=== PATIENT | female | born 1970 | race Caucasian/White ===

== ENCOUNTER → 2016-09-01 | Outpatient (REF) | payer OTHER ==
[~2016-09-01] MED LIST: /HYDR10T PO; /LORA10TA PO; /MOM400 PO; /ONDA4TA PO; /TAMS4CA PO; ACET50TA PO; ALLERGY EYE DROPS OU; ALLO100T OR; ARTHROTEC PO; AZEL0.1S3; Advil PM PO; BACL10TA2 OR; BENA25CA PO; CALCTAB54 PO; CETI10TA PO; CLAR5CHW PO; CLON0.1T PO; DETR1TAB4 PO; DIPH25CA PO; DITR5TAB PO; DOCU10CA PO; DOCU10ELUD PO; FERR150C PO; FLOM5CAP PO; FLOVENT INH; HYDR25TA6 OR; HYDR50TA8 PO; IRON27TA PO; KETO-28 PO; KETO10TAB PO; LASI20TA PO; LEVO750T PO; LISI10TA4 OR; MORP-39 PO; MULTIVIT PO; NEUR100C PO; NEUR300C PO; NITR100C37 PO; NUCY200T PO; NUCY75TA PO; OPTIVAR OU; OXYC-208 PO; OXYCO5TA PO; PERC5TAB8 OR; PERC5TAB8 PO; PERC7.5T12 PO; POTASSIUM CITRATE1 PO; PROG200C PO; PROM25SU5 PO; PROM25TA PO; PROM25TA3 PO; SLOW45TA PO; SUDA30TA PO; TRAM50TA2 OR; TRAM50TA2 PO; TRUBCAP PO; ULTR50TA PO; VALI5TAB PO; VENL37.5 OR; VIT D 4000 PO; VITA1CHW8 PO; VITA1DRO SL; VITA500C3 PO; VITA500L3 PO; ZOFR20TA PO; ZOFR4SOL PO; ZYLO300T4 PO; ZYRT10TA2 PO; [UNRECOGNIZED DRUG - CODE] AU; [UNRECOGNIZED DRUG - CODE] OU; [UNRECOGNIZED DRUG - CODE] PO; [UNRECOGNIZED DRUG - OTHER] AD; [UNRECOGNIZED DRUG - OTHER] PO; morphine IR PO
[2016-09-01 17:55] LABS: CALCIUM OXALATE CRYSTALS MODERATE
== END | disposition home or self-care (01) ==
LOC: M LAB REF 16:18
PROVIDERS: ATTEND Physician Assistant Medical
DX: N39.0 Urinary tract infection, site not specified (principal)

== ENCOUNTER → 2016-09-22 | Outpatient (REF) | payer OTHER ==
[~2016-09-22] MED LIST changes: +OXYC-517 PO; -OXYCO5TA PO
[2016-09-22 14:08] LABS: CALCIUM OXALATE CRYSTALS LARGE
== END | disposition home or self-care (01) ==
LOC: M LAB REF 13:29
PROVIDERS: ATTEND Physician Assistant
DX: R30.0 Dysuria (principal)

== ENCOUNTER → 2016-10-19 | Outpatient (REF) | payer OTHER ==
[2016-10-19 13:51] LABS: MICROSCOPIC INDICATED? MAN YES (NO)
[2016-10-19 13:59] LABS: BACTERIA, URINE LARGE AMOUNT; CALCIUM OXALATE CRYSTALS,URINE SMALL AMOUNT /hpf; RBC, URINE NONE SEEN /hpf (0-3); SQUAMOUS EPITHELIAL CELL URINE SMALL AMOUNT /hpf (SMALL AMT); WBC, URINE 15-20 /hpf (0-3)
[2016-10-19 14:00] LABS: HYALINE CAST, URINE NONE SEEN /lpf (0-1); MICROSCOPIC EXAM PERFORMED
== END ==
LOC: M LAB REF 13:27
PROVIDERS: ATTEND Physician Assistant Medical
DX: N39.0 Urinary tract infection, site not specified (principal)

== ENCOUNTER → 2016-10-19 | Outpatient (CLI) | payer OTHER ==
--- NOTE | 2016-10-20 00:26 | ECWPNPC ---
PATIENT NAME: KELLY REYES : 1970 GENDER: FEMALE VISIT DATE: 10/19/2016 DISCHARGE DATE: 10/19/16 1040 VISIT LOCKED DATE TIME: PHYSICIAN: SONALI AGUIAR RESOURCE: SONALI AGUIAR REASON FOR APPOINTMENT 1. FOLLOW UP HISTORY OF PRESENT ILLNESS HISTORY OF PRESENT ILLNESS: PAIN THE PATIENT DESCRIBES THE PAIN... FALL RISK SCREENING: SCREENING :NO FALLS IN THE PAST YEAR TODAY'S VISIT: NOTES: WAS PUT ON PREVENTATIVE FOR UTI BY DR MARSHALL (SELVIN) TO SEE NEW UROLOGIST IN NEAR FUTURE. TO SEE URGENT CARE TODAY FOR RECURRENT ACTIVE UTI INFECTION. HAS BEEN EXPERIENCING FEVERS. WILL BE MAKING FOLLOW UP APPOINTMENT AT [facility].. CURRENT MEDICATIONS TAKING VITAMIN D (ERGOCALCIFEROL) 17576 UNIT CAPSULE 1 CAPSULE ORALLY TWICE A WEEK TAKING MULTIPLE VITAMIN 2 TABLETS TABLET DIRECTED ORALLY TAKING OPTIVAR 0.05 % SOLUTION 1 DROP INTO BOTH EYES OPHTHALMIC TWICE A DAY TAKING BENADRYL 25 MG CAPSULE 1 CAPSULE NEEDED ORALLY PRN TAKING COLACE 100 MG CAPSULE 1 CAPSULE NEEDED ORALLY BID TAKING HIGH POTENCY IRON 134 MG TABLET 1 TABLET ORALLY THREE TIMES A DAY TAKING VITAMIN C 100 MG TABLET 1 TABLET ORALLY THREE TIMES A DAY TAKING VITAMIN D 400 UNIT CAPSULE ORALLY ONCE A DAY TAKING PROBIOTIC CAPSULE ORALLY DAILY TAKING ZYRTEC ALLERGY 10 MG TABLET 1 TABLET NEEDED ORALLY ONCE A DAY TAKING RIZATRIPTAN BENZOATE 10 MG TABLET 1 TABLET NEEDED ONE TIME ORALLY AT ONSET OF MIGRAINE AND MAY REPEAT X 1 IN 2 HOURS IF NEEDED TAKING GABAPENTIN 300 MG CAPSULE 1 CAP ORALLY TWICE A DAY TAKING OXYBUTYNIN CHLORIDE ER 10 MG TABLET EXTENDED RELEASE 24 HOUR 1 TABLET ORALLY ONCE A DAY TAKING CEPHALEXIN 500 MG CAPSULE 1 CAPSULE ORALLY TWICE A DAY TAKING DITROPAN XL 5 MG TABLET EXTENDED RELEASE 24 HOUR 1 TABLET ORALLY Q 12 HRS PRN PRN SPASMS TAKING TRAMADOL HCL 50 MG TABLET 1 TABLET NEEDED ORALLY 1-2 Q 6 HRS PRN PAIN CHRONIC PAIN MDD=6 TAKING VENLAFAXINE HCL ER 37.5 MG CAPSULE EXTENDED RELEASE 24 HOUR 1 CAPSULE WITH FOOD ORALLY 2 IN AM, 1 AT HS TAKING PERCOCET 10-325 MG TABLET 1 TABLET ORALLY EVERY4 HRS PRN PAIN MDD=6 TAKING URIBEL 118 MG CAPSULE 1 CAPSULE ORALLY FOUR TIMES A DAY TAKING FENUGREEK 610 MG CAPSULE ORALLY TID NOT-TAKING CYCLOBENZAPRINE HCL 10 MG TABLET 1/2 - TABLET ORALLY THREE TIMES A DAY MEDICATION LIST REVIEWED AND RECONCILED WITH THE PATIENT PAST MEDICAL HISTORY KIDNEY STONES HYPERTENSION SEASONAL DEPRESSION ALLERGIES BACTRIM: RASH: ALLERGY VICODIN: DYSPNEA: ALLERGY DILAUDID: NAUSEA/VOMITING: SIDE EFFECTS LEVAQUIN: NAUSEA/VOMITING: SIDE EFFECTS IV DYE: HIVES: ALLERGY SULFA (FOR ALLERGY USE ONLY): CONTRAINDICATED (BACTRIM) ALLERGY: ALLERGY GREEN DYE IN GEL CAPS: HIVES: ALLERGY EXCEDRIN MIGRAINE: HIVES: ALLERGY SOCIAL HISTORY GENERAL: TOBACCO USE ARE YOU A:NONSMOKER LEARNING BARRIERS / SPECIAL NEEDS ORIENTED TO PLAN OF CARE: PATIENT, PAIN MANAGEMENT PATIENT, ORIENTED TO PLAN OF CARE: PATIENT, PAIN MANAGEMENT PATIENT. NEW PATIENT PAIN DIARY TODAY'S VISITNOTES FROM 0-10, WHAT LEVEL IS YOUR PAIN TODAY?0 PAIN CLINIC PFS, CLERGY, PUBLIC HEALTH REFERRALS PFS REFERRAL NEEDED?NO CLERGY REFERRAL NEEDED?NO PUBLIC HEALTH REFERRAL NEEDED?NO WAS THE PROVIDER NOTIFIED OF ANY PERTINENT INFO?NO PFS REFERRAL NEEDED?NO CLERGY REFERRAL NEEDED?NO PUBLIC HEALTH REFERRAL NEEDED?NO WAS THE PROVIDER NOTIFIED OF ANY PERTINENT INFO?NO REVIEW OF SYSTEMS CONSTITUTIONAL: ANY CHANGE IN YOUR MEDICAL CONDITION? YES, CURRENTLY STATES SHE HAS A SORE THROAT / UTI SINCE MARCH ONE AFTER THE OTHER . MELLO STATES IS DUE TO REFULUS . CHILLS NO . FEVER NO . INFECTION: DO YOU HAVE NEW INFECTIONS? NO . DO YOU HAVE HISTORY OF MRSA? NO . MUSCULOSKELETAL: ANY NEW PATTERNS OF PAIN OR NUMBNESS? NO . GASTROENTEROLOGY: ANY NEW CHANGE IN BOWEL CONTROL? NO . GENITOURINARY: ANY NEW CHANGE IN BLADDER CONTROL? YES BURNING PULLING AND SMELL . IS THERE A CHANCE YOU COULD BE ? NO . HEMATOLOGY/LYMPH: DO YOU TAKE ANY BLOOD THINNERS? (FOR EXAMPLE- COUMADIN, PLAVIX, AGGRENOX, PLATEL, PRADAXA, OR XARELTO) NO . WHEN WAS YOUR LAST DOSE? DATE: TIME: . NEUROLOGY: HAVE YOU FALLEN IN THE PAST 6 MONTHS? NO . ANY NEW EXTREMITY NUMBNESS OR WEAKNESS? NO . CARDIOLOGY: DO YOU HAVE A PACEMAKER OR DEFIBRILLATOR? NO . RESPIRATORY: HAVE YOU BEEN SICK IN THE PAST WEEK? NO . FEVER NO . FLU LIKE SYMPTOMS? NO . COUGH NO . INTEGUMENTARY: DO YOU HAVE ANY RASHES OR OPEN SORES? NO . ALLERGIC/IMMUNO: ARE YOU ALLERGIC TO SHELLFISH OR IV DYE? YES . ANY NEW ALLERGIES? NO . PSYCHIATRIC: DO YOU HAVE THOUGHTS OF HURTING YOURSELF OR SOMEONE ELSE? NO . ARE YOU ABUSED, NEGLECTED, OR IN AN UNSAFE ENVIRONMENT? NO . ENDOCRINOLOGY: ARE YOU DIABETIC? NO . OTHER: DO YOU NEED ANY PRESCRIPTIONS? NO . IF YES, PLEASE LIST: ____ . ANY NEW PROBLEMS WITH YOUR MEDICATIONS? NO . WHEN DID YOU LAST EAT? ____ . WHEN DID YOU LAST DRINK? ____ . WHAT DID YOU LAST DRINK? ____ . NAME OF PERSON DRIVING YOU HOME? ____ . DO YOU HAVE ANY OTHER QUESTIONS OR CONCERNS NO . REVIEWED BY: PROVIDER: SONALI MONZON . VITAL SIGNS WT 215 LBS, HT 5'6", BMI 34.70 INDEX, BP 139/72 MM HG, HR 82 /MIN, RR 18 /MIN, TEMP 98 F,2 F, OXYGEN SAT % 97, SAFE IN ENV? (Y/N) YES, REVIEWED BY: KG. EXAMINATION GENERAL EXAMINATION: PSYCHALERT , ORIENTED X 3 , APPROPRIATE MOOD AND AFFECT . LUNGS:CLEAR TO AUSCULTATION BILATERALLY. HEART:HEART RATE REGULAR. ABDOMEN:SOFT, TENDER OVER RIGHT AND LEFT LOWER QUADRANTS. BOWEL SOUNDS QUIET. COSTOVERTEBRAL ANGLE TENDERNESS R>L. MUSCULOSKELETAL:R>L FLANK PAIN. . ASSESSMENTS GENERALIZED ABDOMINAL PAIN - R10.84 (PRIMARY) CHRONIC PRESCRIPTION OPIATE USE - Z79.891 TREATMENT GENERALIZED ABDOMINAL PAIN NOTES: CONTINUE CURRENT MEDS. CALL WHEN MEDS DUE. UTOX TODAY. UPDATE NARCOTIC AGREEMENT. CLINICAL NOTES: ISTOP REGISTRY REVIEWED AND DEMNOSTRATES COMPLLIANCE. BRINGS IN MEDICATIONS WHICH IS APPROPRIATE FOR WHAT WAS DISPENSED. RECENT URINE TOXICOLOGY REVIEWED. NO UNAUTHORIZED MEDICATIONS. NO ILLICIT SUBSTANCES AND PRESCRIBED MEDICATIONS WERE PRESENT. PROCEDURE CODES FA211 ESTABILISHED PATIENT [facility] CHARGE DISPOSITION & COMMUNICATION FOLLOW UP 2 MONTHS ELECTRONICALLY SIGNED BY RAND DIANE ON 10/19/2016 AT 11:46 AM EST DISCLAIMER : THIS IS A VISIT SUMMARY EXTRACTED FROM THE [employer] CHART. IT IS NOT A COPY OF THE [employer] PROGRESS NOTE. SIDD
== END ==
LOC: M PAIN 09:20
PROVIDERS: ATTEND Nurse Practitioner Family
DX: Z09 Encounter for follow-up examination after completed treatment for conditions other than malignant neoplasm (principal); G89.29 Other chronic pain; R10.84 Generalized abdominal pain; M79.2 Neuralgia and neuritis, unspecified; I10 Essential (primary) hypertension; F33.9 Major depressive disorder, recurrent, unspecified; Z88.1 Allergy status to other antibiotic agents; Z88.5 Allergy status to narcotic agent; Z88.8 Allergy status to other drugs, medicaments and biological substances; Z91.041 Radiographic dye allergy status; Z88.2 Allergy status to sulfonamides; Z79.891 Long term (current) use of opiate analgesic; Z79.899 Other long term (current) drug therapy

== ENCOUNTER → 2016-12-14 | Outpatient (REF) | payer OTHER | LOC: M LAB REF 17:02 | PROVIDERS: ATTEND Physician Assistant | DX: N39.0 Urinary tract infection, site not specified (principal) ==

== ENCOUNTER → 2017-01-03 | Outpatient (REF) | payer OTHER | LOC: M LAB REF 09:51 | PROVIDERS: ATTEND Physician Assistant | DX: R30.0 Dysuria (principal) ==

== ENCOUNTER → 2017-01-20 | Outpatient (CLI) | payer OTHER ==
--- NOTE | 2017-02-09 01:45 | ECWPNPC ---
PATIENT NAME: KELLY REYES : 1970 GENDER: FEMALE VISIT DATE: 01/20/2017 DISCHARGE DATE: 01/20/17 0951 VISIT LOCKED DATE TIME: PHYSICIAN: SONALI AGUIAR RESOURCE: SONALI AGUIAR REASON FOR APPOINTMENT 1. KIDNEY HISTORY OF PRESENT ILLNESS HISTORY OF PRESENT ILLNESS: PAIN THE PATIENT DESCRIBES THE PAIN... FALL RISK SCREENING: SCREENING :NO FALLS IN THE PAST YEAR TODAY'S VISIT: NOTES: HAD RECENT CYSTOSCOPY - NO VISUALIZED ISSUES. IS BEING REFERRED TO INFECTIOUS DISEASE.FOR FURTHER EVAL. HAS EPISODES OF SEVERE BLADDER SPASMS AND BLADDER AREA PAIN. PAIN MEDS ALLOW TO FUNCTION, TAKE THE EDGE OFF. HAS NOT YET BEEN RESEEN AT [facility]. RATES PAIN TODAY 5/[address]. . CURRENT MEDICATIONS TAKING VITAMIN D (ERGOCALCIFEROL) 80460 UNIT CAPSULE 1 CAPSULE ORALLY TWICE A WEEK TAKING MULTIPLE VITAMIN 2 TABLETS TABLET DIRECTED ORALLY TAKING OPTIVAR 0.05 % SOLUTION 1 DROP INTO BOTH EYES OPHTHALMIC TWICE A DAY TAKING BENADRYL 25 MG CAPSULE 1 CAPSULE NEEDED ORALLY PRN TAKING COLACE 100 MG CAPSULE 1 CAPSULE NEEDED ORALLY BID TAKING HIGH POTENCY IRON 134 MG TABLET 1 TABLET ORALLY THREE TIMES A DAY TAKING VITAMIN C 100 MG TABLET 1 TABLET ORALLY THREE TIMES A DAY TAKING VITAMIN D 400 UNIT CAPSULE ORALLY ONCE A DAY TAKING PROBIOTIC CAPSULE ORALLY DAILY TAKING ZYRTEC ALLERGY 10 MG TABLET 1 TABLET NEEDED ORALLY ONCE A DAY TAKING GABAPENTIN 300 MG CAPSULE 1 CAP ORALLY TWICE A DAY TAKING OXYBUTYNIN CHLORIDE ER 10 MG TABLET EXTENDED RELEASE 24 HOUR 1 TABLET ORALLY ONCE A DAY TAKING CEPHALEXIN 500 MG CAPSULE 1 CAPSULE ORALLY TWICE A DAY TAKING DITROPAN XL 5 MG TABLET EXTENDED RELEASE 24 HOUR 1 TABLET ORALLY Q 12 HRS PRN PRN SPASMS TAKING VENLAFAXINE HCL ER 37.5 MG CAPSULE EXTENDED RELEASE 24 HOUR 1 CAPSULE WITH FOOD ORALLY 2 IN AM, 1 AT HS TAKING FENUGREEK 610 MG CAPSULE ORALLY TID TAKING RIZATRIPTAN BENZOATE 10 MG TABLET 1 TABLET NEEDED ONE TIME ORALLY AT ONSET OF MIGRAINE AND MAY REPEAT X 1 IN 2 HOURS IF NEEDED TAKING TRAMADOL HCL 50 MG TABLET 1 TABLET NEEDED ORALLY 1-2 Q 6 HRS PRN PAIN CHRONIC PAIN MDD=6 TAKING PERCOCET 10-325 MG TABLET 1 TABLET ORALLY EVERY4 HRS PRN PAIN MDD=6 NOT-TAKING URIBEL 118 MG CAPSULE 1 CAPSULE ORALLY FOUR TIMES A DAY NOT-TAKING CYCLOBENZAPRINE HCL 10 MG TABLET 1/2 - TABLET ORALLY THREE TIMES A DAY MEDICATION LIST REVIEWED AND RECONCILED WITH THE PATIENT PAST MEDICAL HISTORY KIDNEY STONES HYPERTENSION SEASONAL DEPRESSION ALLERGIES BACTRIM: RASH: ALLERGY VICODIN: DYSPNEA: ALLERGY DILAUDID: NAUSEA/VOMITING: SIDE EFFECTS LEVAQUIN: NAUSEA/VOMITING: SIDE EFFECTS IV DYE: HIVES: ALLERGY SULFA (FOR ALLERGY USE ONLY): CONTRAINDICATED (BACTRIM) ALLERGY: ALLERGY GREEN DYE IN GEL CAPS: HIVES: ALLERGY EXCEDRIN MIGRAINE: HIVES: ALLERGY REVIEW OF SYSTEMS CONSTITUTIONAL: ANY CHANGE IN YOUR MEDICAL CONDITION? YES, STILL HAVE BLADDER INFECTION . CHILLS YES, ASSOCIATED WITH FEVER . FEVER YES . INFECTION: DO YOU HAVE NEW INFECTIONS? NO . DO YOU HAVE HISTORY OF MRSA? NO . MUSCULOSKELETAL: ANY NEW PATTERNS OF PAIN OR NUMBNESS? NO . GASTROENTEROLOGY: ANY NEW CHANGE IN BOWEL CONTROL? NO . GENITOURINARY: ANY NEW CHANGE IN BLADDER CONTROL? NO . IS THERE A CHANCE YOU COULD BE ? NO . HEMATOLOGY/LYMPH: DO YOU TAKE ANY BLOOD THINNERS? (FOR EXAMPLE- COUMADIN, PLAVIX, AGGRENOX, PLATEL, PRADAXA, OR XARELTO) NO . WHEN WAS YOUR LAST DOSE? DATE: TIME: . NEUROLOGY: HAVE YOU FALLEN IN THE PAST 6 MONTHS? NO . ANY NEW EXTREMITY NUMBNESS OR WEAKNESS? NO . CARDIOLOGY: DO YOU HAVE A PACEMAKER OR DEFIBRILLATOR? NO . RESPIRATORY: HAVE YOU BEEN SICK IN THE PAST WEEK? NO . FEVER NO . FLU LIKE SYMPTOMS? NO . COUGH NO . INTEGUMENTARY: DO YOU HAVE ANY RASHES OR OPEN SORES? NO . ALLERGIC/IMMUNO: ARE YOU ALLERGIC TO SHELLFISH OR IV DYE? YES, IVP DYE . ANY NEW ALLERGIES? NO . PSYCHIATRIC: DO YOU HAVE THOUGHTS OF HURTING YOURSELF OR SOMEONE ELSE? NO . ARE YOU ABUSED, NEGLECTED, OR IN AN UNSAFE ENVIRONMENT? NO . ENDOCRINOLOGY: ARE YOU DIABETIC? NO . OTHER: DO YOU NEED ANY PRESCRIPTIONS? YES . IF YES, PLEASE LIST: GABAPENTIN . ANY NEW PROBLEMS WITH YOUR MEDICATIONS? NO . WHEN DID YOU LAST EAT? ____ . WHEN DID YOU LAST DRINK? ____ . WHAT DID YOU LAST DRINK? ____ . NAME OF PERSON DRIVING YOU HOME? ____ . DO YOU HAVE ANY OTHER QUESTIONS OR CONCERNS NO . REVIEWED BY: PROVIDER: SONALI MONZON . VITAL SIGNS WT 215.0 LBS, HT 66", BMI 34.70 INDEX, BP 130/66 MM HG, HR 76 /MIN, RR 16 /MIN, TEMP 96.6 F, OXYGEN SAT % 96%, NA INITIALS TL 0917, REVIEWED BY: NL. EXAMINATION GENERAL EXAMINATION: PSYCHALERT , ORIENTED X 3 , APPROPRIATE MOOD AND AFFECT , FFRUSTRATED. LUNGS:CLEAR TO AUSCULTATION BILATERALLY. HEART:HEART RATE REGULAR. ABDOMEN:SOFT, TENDER OVER RIGHT AND LEFT LOWER QUADRANTS. BOWEL SOUNDS QUIET. COSTOVERTEBRAL ANGLE TENDERNESS R>L. MUSCULOSKELETAL:R>L FLANK PAIN. . ASSESSMENTS GENERALIZED ABDOMINAL PAIN - R10.84 (PRIMARY) TREATMENT GENERALIZED ABDOMINAL PAIN REFILL GABAPENTIN CAPSULE, 300 MG, 1 CAP, ORALLY, TWICE A DAY, 30 DAY(S), 60 CAPSULE, REFILLS 5 NOTES: CONTINE CURRENT MEDS. FOLLOW UP WITH INFECTIOUS DISEASES, [facility] AND UROLOGY. CLINICAL NOTES: ISTOP REGISTRY REVIEWED AND DEMNOSTRATES COMPLLIANCE. BRINGS IN MEDICATIONS WHICH IS APPROPRIATE FOR WHAT WAS DISPENSED. RECENT URINE TOXICOLOGY REVIEWED. NO UNAUTHORIZED MEDICATIONS. NO ILLICIT SUBSTANCES AND PRESCRIBED MEDICATIONS WERE PRESENT. PROCEDURE CODES FA211 ESTABILISHED PATIENT [facility] CHARGE DISPOSITION & COMMUNICATION FOLLOW UP 2-3 MONTHS (REASON: ABD PAIN) ELECTRONICALLY SIGNED BY RAND DIANE ON 02/08/2017 AT 05:48 PM EDT DISCLAIMER : THIS IS A VISIT SUMMARY EXTRACTED FROM THE [employer] CHART. IT IS NOT A COPY OF THE [employer] PROGRESS NOTE. JEANETTE
== END ==
LOC: M PAIN 09:00
PROVIDERS: ATTEND Nurse Practitioner Family
DX: G89.29 Other chronic pain (principal); R10.84 Generalized abdominal pain; Z87.442 Personal history of urinary calculi; I10 Essential (primary) hypertension; F32.9 Major depressive disorder, single episode, unspecified; Z79.891 Long term (current) use of opiate analgesic; Z79.899 Other long term (current) drug therapy; Z88.1 Allergy status to other antibiotic agents; Z88.5 Allergy status to narcotic agent; Z88.2 Allergy status to sulfonamides; Z88.6 Allergy status to analgesic agent; Z88.8 Allergy status to other drugs, medicaments and biological substances

== ENCOUNTER → 2017-01-28 | Outpatient (REF) | payer OTHER ==
[2017-01-28 16:55] LABS: BASO % 0.4 % (0.0-1.0); EOS # 0.1 K/mm3 (0.0-0.50); EOS % 1.6 % (0.0-3.0); LARGE UNSTAINED CELL # 0.1 K/mm3 (0.0-0.4); LARGE UNSTAINED CELL % 1.3 % (0.0-4.0); LYMPH # 1.5 K/mm3 (1.5-4.5); MEAN CORPUSCULAR HEMOGLOBIN 32.5 pg (27.0-33.0); MEAN CORPUSCULAR HGB CONC 34.1 g/dl (32.0-36.5); MEAN CORPUSCULAR VOLUME 95.4 fl (80.0-96.0); MONO # 0.5 K/mm3 (0.0-0.8); MONO % 7.4 % (0.0-5.0); NEUTROPHILS % 69.3 % (36.0-66.0); PLATELET COUNT, AUTOMATED 225 k/mm3 (150-450); RED CELL DISTRIBUTION WIDTH 12.9 % (11.5-14.5); WHITE BLOOD COUNT 7.3 K/mm3 (4.0-10.0)
[2017-01-28 17:24] LABS: ALBUMIN 3.7 GM/DL (3.2-5.2); ALBUMIN/GLOBULIN RATIO 1.23 (1.00-1.93); ALKALINE PHOSPHATASE 62 U/L (45-117); ALT/SGPT 24 U/L (12-78); ANION GAP 6 MEQ/L (8-16); AST/SGOT 15 U/L (15-37); BILIRUBIN,TOTAL 0.3 MG/DL (0.2-1.0); BLOOD UREA NITROGEN 16 MG/DL (7-18); CALCIUM LEVEL 8.7 MG/DL (8.5-10.1); CARBON DIOXIDE LEVEL 28 MEQ/L (21-32); CHLORIDE LEVEL 105 MEQ/L (98-107); CREATININE FOR GFR 0.78 MG/DL (0.55-1.02); GLOMERULAR FILTRATION RATE > 60.0 (>58); GLUCOSE, FASTING 102 MG/DL (70-105); POTASSIUM SERUM 4.2 MEQ/L (3.5-5.1); SODIUM LEVEL 139 MEQ/L (136-145); TOTAL PROTEIN 6.7 GM/DL (6.4-8.2)
== END ==
LOC: M LABDRAW1 15:37
PROVIDERS: ATTEND Internal Medicine Infectious Disease
DX: N39.0 Urinary tract infection, site not specified (principal)

== ENCOUNTER → 2017-02-04 | Outpatient (CLI) | payer OTHER ==
[~2017-02-04] MED LIST changes: +ISOVUE-370 76% 100ML VIAL (Q9967) As Ordered ONE; -NITR100C37 PO; +NITR100C39 PO
--- NOTE | 2017-02-05 05:19 | REP ---
Clinical: Recurrent urinary tract infections. Technique: Axial precontrast, contrast enhanced, and delayed images of the abdomen and pelvis using 100 ml Isovue 370 intravenous contrast material with coronal and sagittal re-formations. Comparison: 11/16/2006. Findings: There is evidence for autologous bilateral renal transplant with the kidneys are identified in the mid pelvis and renal vasculature anastomosed to the iliac vessels. The bilateral ureters have been transplanted to the anterior-superior margin of the bladder. The kidneys demonstrate satisfactory symmetric enhancement small areas of cortical scarring identified bilaterally which appear chronic. Delayed images demonstrate relatively normal appearance to the collecting system without hydroureteronephrosis. There is no evidence for nephrolithiasis, cystic or mass lesion. Liver, spleen, pancreas, and bilateral adrenal glands are normal. The patient is status post gastric bypass surgery, cholecystectomy, small bowel resection/anastomoses. There is no evidence for bowel obstruction or acute inflammatory process. Midline ventral pelvic hernia contains nonobstructed loop of colon. Pelvis demonstrates age appropriate uterus / adnexa. No pelvic fluid or ascites. No adenopathy. No free air. Abdominal aorta without aneurysm. Surrounding musculoskeletal structures are intact. Lung bases are clear. Impression: 1. Evidence for bilateral renal transplants as described above without acute urinary tract pathology and no evidence for hydroureteronephrosis. 2. Further chronic and postsurgical changes as noted above. 3. Midline ventral pelvic hernia contains nonobstructed loop of colon. 4. No further acute intra-abdominal or pelvic pathology appreciated. Signed by Charli Christensen MD 02/05/2017 05:11 A
== END ==
LOC: M RAD 15:46
PROVIDERS: ATTEND Internal Medicine Infectious Disease
DX: N39.0 Urinary tract infection, site not specified (principal); K43.9 Ventral hernia without obstruction or gangrene; Z94.0 Kidney transplant status
CPT/HCPCS: 74178; Q9967

== ENCOUNTER → 2017-04-15 | Outpatient (CLI) | payer OTHER ==
[~2017-04-15] MED LIST changes: -ISOVUE-370 76% 100ML VIAL (Q9967) As Ordered ONE
--- NOTE | 2017-04-20 23:54 | ECWPNPC ---
PATIENT NAME: KELLY REYES : 1970 GENDER: FEMALE VISIT DATE: 04/15/2017 DISCHARGE DATE: 04/15/17 1138 VISIT LOCKED DATE TIME: PHYSICIAN: SONALI AGUIAR RESOURCE: SONALI AGUIAR REASON FOR APPOINTMENT 1. KIDNEY HISTORY OF PRESENT ILLNESS HISTORY OF PRESENT ILLNESS: PAIN THE PATIENT DESCRIBES THE PAIN... FALL RISK SCREENING: SCREENING :NO FALLS IN THE PAST YEAR TODAY'S VISIT: NOTES: RATES PAIN LEVEL TODAY 5/10 WITH MEDICATION PAIN IS CENTERED IN MID ABDOMEN AND FLANK AREA BILATERALLY AND COMES IN WAVES AND SPASMS. PAIN IS WORSE WITH BLADDER INFECTION AND WHEN A KIDNEY STONE OR BLADDER SLUDGE IS MOVING. REPORTS INTERMITTNT VISIBLE BLOOD IN THE URINE. REPORTS HER MEDS ARE HELPFUL AT KEEPING THE PAIN CONTROLLED AND ALLOW HER TO FUNCTION. . CURRENT MEDICATIONS TAKING VITAMIN D (ERGOCALCIFEROL) 65076 UNIT CAPSULE 1 CAPSULE ORALLY TWICE A WEEK TAKING MULTIPLE VITAMIN 2 TABLETS TABLET DIRECTED ORALLY TAKING OPTIVAR 0.05 % SOLUTION 1 DROP INTO BOTH EYES OPHTHALMIC TWICE A DAY TAKING BENADRYL 25 MG CAPSULE 1 CAPSULE NEEDED ORALLY PRN TAKING COLACE 100 MG CAPSULE 1 CAPSULE NEEDED ORALLY BID TAKING HIGH POTENCY IRON 134 MG TABLET 1 TABLET ORALLY THREE TIMES A DAY TAKING VITAMIN C 100 MG TABLET 1 TABLET ORALLY THREE TIMES A DAY TAKING VITAMIN D 400 UNIT CAPSULE ORALLY ONCE A DAY TAKING PROBIOTIC CAPSULE ORALLY DAILY TAKING ZYRTEC ALLERGY 10 MG TABLET 1 TABLET NEEDED ORALLY ONCE A DAY TAKING FOSFOMYCIN 3 G DISSOVED IN 4 OZ WATER 3 G DISSOLVED IN 4 OZ OF WATER ORALLY ONE DOSE WEEKLY TAKING GABAPENTIN 300 MG CAPSULE 1 CAP ORALLY TWICE A DAY TAKING RIZATRIPTAN BENZOATE 10 MG TABLET 1 TABLET NEEDED ONE TIME ORALLY AT ONSET OF MIGRAINE AND MAY REPEAT X 1 IN 2 HOURS IF NEEDED TAKING VENLAFAXINE HCL ER 37.5 MG CAPSULE EXTENDED RELEASE 24 HOUR 1 CAPSULE ORALLY 2 IN AM, 1 AT HS TAKING TRAMADOL HCL 50 MG TABLET 1 TABLET NEEDED ORALLY 1-2 Q 6 HRS PRN PAIN CHRONIC PAIN MDD=6 TAKING PERCOCET 10-325 MG TABLET 1 TABLET ORALLY EVERY4 HRS PRN PAIN MDD=6 TAKING KEFLEX 500 MG CAPSULE 1 CAPSULE ORALLY TID PRN NOT-TAKING OXYBUTYNIN CHLORIDE ER 10 MG TABLET EXTENDED RELEASE 24 HOUR 1 TABLET ORALLY ONCE A DAY NOT-TAKING CEPHALEXIN 500 MG CAPSULE 1 CAPSULE ORALLY TWICE A DAY NOT-TAKING FENUGREEK 610 MG CAPSULE ORALLY TID MEDICATION LIST REVIEWED AND RECONCILED WITH THE PATIENT PAST MEDICAL HISTORY KIDNEY STONES HYPERTENSION SEASONAL DEPRESSION ALLERGIES BACTRIM: RASH: ALLERGY VICODIN: DYSPNEA: ALLERGY DILAUDID: NAUSEA/VOMITING: SIDE EFFECTS LEVAQUIN: NAUSEA/VOMITING: SIDE EFFECTS IV DYE: HIVES: ALLERGY SULFA (FOR ALLERGY USE ONLY): CONTRAINDICATED (BACTRIM) ALLERGY: ALLERGY GREEN DYE IN GEL CAPS: HIVES: ALLERGY EXCEDRIN MIGRAINE: HIVES: ALLERGY SURGICAL HISTORY LITHOTRIPSY W/STENT R SIDE 12/1996 10/1998 LITHOTRIPSY W/STENT R SIDE 11/1998 GALL BLADDER REMOVED 12/1998 LITHOTRIPSY W/STENT R SIDE 09/2003 LITHOTRIPSY W/STENT R SIDE 03/2006 LITHOTRIPSY W/STENT LEFT SIDE 05/2006 LITHOTRIPSY W/STENT L SIDE 05/2009 GASTRIC BYPASS 03/2012 LEFT - KIDNEY AUTOTRANSPLANT 11/09/2012 CYSTOSCOPY, RETROGRADE PYELOGRAM & RIGHT URETERAL STENT PLACEMENT 12/23/2012 CYSTOSCOPY, RIGHT URETEROSCOPY, BASKET EXTRACTION OF STONES, RIGHT DOUBLE J STENT EXCHANGE 02/02/2013 HOSPITALIZATION/MAJOR DIAGNOSTIC PROCEDURE 1998 GALL BLADDER REMOVED 1998 SEPTIC INFECTION 2007 PYELONEPHRITIS, UROSEPSIS, OBSTRUCTIVE NEPHROLITHIASIS 12/22/2012 REVIEW OF SYSTEMS REVIEWED BY: PROVIDER: SONALI MONZON . CONSTITUTIONAL: ANY CHANGE IN YOUR MEDICAL CONDITION? NO . CHILLS NO . FEVER NO . INFECTION: DO YOU HAVE NEW INFECTIONS? NO . DO YOU HAVE HISTORY OF MRSA? NO . MUSCULOSKELETAL: ANY NEW PATTERNS OF PAIN OR NUMBNESS? NO . GASTROENTEROLOGY: ANY NEW CHANGE IN BOWEL CONTROL? NO . GENITOURINARY: ANY NEW CHANGE IN BLADDER CONTROL? NO . IS THERE A CHANCE YOU COULD BE ? NO . HEMATOLOGY/LYMPH: DO YOU TAKE ANY BLOOD THINNERS? (FOR EXAMPLE- COUMADIN, PLAVIX, AGGRENOX, PLATEL, PRADAXA, OR XARELTO) NO . WHEN WAS YOUR LAST DOSE? DATE: TIME: . NEUROLOGY: HAVE YOU FALLEN IN THE PAST 6 MONTHS? NO . ANY NEW EXTREMITY NUMBNESS OR WEAKNESS? NO . CARDIOLOGY: DO YOU HAVE A PACEMAKER OR DEFIBRILLATOR? NO . RESPIRATORY: HAVE YOU BEEN SICK IN THE PAST WEEK? NO . FEVER NO . FLU LIKE SYMPTOMS? NO . COUGH NO . INTEGUMENTARY: DO YOU HAVE ANY RASHES OR OPEN SORES? NO . ALLERGIC/IMMUNO: ARE YOU ALLERGIC TO SHELLFISH OR IV DYE? YES . ANY NEW ALLERGIES? NO . PSYCHIATRIC: DO YOU HAVE THOUGHTS OF HURTING YOURSELF OR SOMEONE ELSE? NO . ARE YOU ABUSED, NEGLECTED, OR IN AN UNSAFE ENVIRONMENT? NO . ENDOCRINOLOGY: ARE YOU DIABETIC? NO . OTHER: DO YOU NEED ANY PRESCRIPTIONS? NO . IF YES, PLEASE LIST: ____ . ANY NEW PROBLEMS WITH YOUR MEDICATIONS? NO . WHEN DID YOU LAST EAT? ____ . WHEN DID YOU LAST DRINK? ____ . WHAT DID YOU LAST DRINK? ____ . NAME OF PERSON DRIVING YOU HOME? ____ . DO YOU HAVE ANY OTHER QUESTIONS OR CONCERNS NO . PSYCHOLOGY: PATIENT COMPLAINING OF FRUSTRATION WITH STRESS DUE TO ISSUES WITH EMPLOYER. VERY MUCH WANTS TO GET BACK TO WORK . UROLOGY: HEMATURIA INTERMITTANT HEMATURIA BASED ON MOVEMENT OF KIDNEY STONES. TREATED ON 2 OCCASIONS SINCE LAST VISIT FOR BLADDER INFECTION ASSOCIATED WITH FEVER, CHILLS, INTENSE NAUSEA AND INCREASED PAIN . VITAL SIGNS WT 226 LBS, HT 66", BMI 36.47 INDEX, BP 127/67 MM HG, HR 94 /MIN, RR 18 /MIN, TEMP 98.1 F, OXYGEN SAT % 97%, NA INITIALS CM 1038, REVIEWED BY: EM. EXAMINATION GENERAL EXAMINATION: PSYCHALERT , ORIENTED X 3 , APPROPRIATE MOOD AND AFFECT , TALKATIVE. SPEACH CLEAR - NO SLURRING. FOCUSED, ABLE TO STAY ON TARGET WITHOUT ISSUE.. LUNGS:CLEAR TO AUSCULTATION BILATERALLY. HEART:HEART RATE REGULAR, NORMAL S1S2, NO MURMURS, CLICK OR RUBS. ABDOMEN:SOFT, TENDER OVER RIGHT AND LEFT LOWER QUADRANTS. BOWEL SOUNDS QUIET. COSTOVERTEBRAL ANGLE TENDERNESS POSITIVE R>L. MUSCULOSKELETAL:R>L FLANK PAIN. ABLE TO RISE EASILY TO STANDING POSITION. , MUSCLE STRENGTH TESTING 5/5 BILATERAL UPPER AND LOWER EXTREMITIES. GAIT NONANTALGIC. ASSESSMENTS GENERALIZED ABDOMINAL PAIN - R10.84 (PRIMARY) TREATMENT GENERALIZED ABDOMINAL PAIN NOTES: CONTINUE CURRENT MEDS. USE OXYCODONE NEEDED MAX 6 PER DAY. TRY TO TAKE LITTLE POSSIBLE. CALL WHEN SCRIPTS DUE, ISTOP REGISTRY REVIEWED AND DEMONSTRATES COMPLIANCE. BRINGS IN MEDICATIONS WHICH IS APPROPRIATE FOR WHAT WAS DISPENSED. RECENT URINE TOXICOLOGY REVIEWED. NO UNAUTHORIZED MEDICATIONS. NO ILLICIT SUBSTANCES AND PRESCRIBED MEDICATIONS WERE PRESENT. LENGTHY DISCUSSION HELD REGARDING THE USE OF PAIN MEDICATIONS. WE HAVE DISCUSSED THIS MANY TIMES OVER THE YEARS SINCE HER ORIGINAL VISIT FOR ABDOMINAL PAIN SECONDARY TO HER KIDNEY STONE ISSUE. KELLY HAS COME TO EVERY APPOINTMENT WITHOUT FAIL. SHE HAS DONE RANDOM URINE TESTING AND THIS HAS ALWAYS SHOWN ONLY THE PRESCRIBED MEDICATIONS AND NEVER ANY ILLICIT SUBSTANCES. SHE HAS NEVER DEMONSTRATED ANY LACK OF JUDGMENT OR EVIDENCE OF IMPAIRMENT. SHE REPORTS THAT SHE USES HER OPIATES AFTER HER WORK HOURS AND ON THOSE OCCASIONS WHEN SHE CAN NOT TOLERATE THE PAIN OR HAS AN ACUTE INFECTION SHE HAS HAD TO TAKE TIME FROM HER JOB. SHE HAS MULTIPLE PROVIDERS INVOLVED IN HER CARE AND AT TIMES ATTENDING THOSE APPOINTMENTS HAS BEEN CHALLENGING DUE TO HER WORK SCHEDULE. I HAVE NEVER SEEN ANY "RED FLAG BEHAVIORS". 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 SHE WILL CONTINUE HER APPOINTMENTS HERE AND WE WILL CLOSELY MONITOR HER. WE WILL CONTINUE TO WORK TO IMPROVE HER PAIN CONTROL AND USE HER MEDS INFREQUENTLY POSSIBLE. PROCEDURE CODES FA211 ESTABILISHED PATIENT [facility] CHARGE DISPOSITION & COMMUNICATION FOLLOW UP 7 WEEKS (REASON: ABD/FLANK) ELECTRONICALLY SIGNED BY RAND DIANE ON 04/20/2017 AT 07:32 PM EDT DISCLAIMER : THIS IS A VISIT SUMMARY EXTRACTED FROM THE [employer] CHART. IT IS NOT A COPY OF THE [employer] PROGRESS NOTE. JEANETTE
== END ==
LOC: M PAIN 10:30
PROVIDERS: ATTEND Nurse Practitioner Family
DX: G89.29 Other chronic pain (principal); R10.84 Generalized abdominal pain; I10 Essential (primary) hypertension; F33.9 Major depressive disorder, recurrent, unspecified; Z98.82 Breast implant status; Z79.891 Long term (current) use of opiate analgesic; Z87.442 Personal history of urinary calculi; Z79.899 Other long term (current) drug therapy; Z88.1 Allergy status to other antibiotic agents; Z88.2 Allergy status to sulfonamides; Z88.6 Allergy status to analgesic agent; Z88.8 Allergy status to other drugs, medicaments and biological substances; Z88.5 Allergy status to narcotic agent; Z91.041 Radiographic dye allergy status

== ENCOUNTER → 2017-06-30 | Outpatient (CLI) | payer OTHER ==
--- NOTE | 2017-07-21 00:15 | ECWPNPC ---
PATIENT NAME: KELLY GRAHAM : 1970 GENDER: FEMALE VISIT DATE: 06/30/2017 DISCHARGE DATE: 06/30/17 1151 VISIT LOCKED DATE TIME: PHYSICIAN: SONALI AGUIAR RESOURCE: SONALI AGUIAR REASON FOR APPOINTMENT 1. KIDNEY HISTORY OF PRESENT ILLNESS HISTORY OF PRESENT ILLNESS: PAIN THE PATIENT DESCRIBES THE PAIN... FALL RISK SCREENING: SCREENING :NO FALLS IN THE PAST YEAR TODAY'S VISIT: NOTES: RATES PAIN TODAY 5/10WITH MEDS . PAIN CENTERED ACROSS THE [place] AREA. HAS BEEN RECURRING UTI - DID SEE DR TAMAYO BUT IS HAVING ISSUES TO GET THIS UNDER CONTROL IS SCHED TO SEE [facility] 07/10/17. SHE BRINGS INFORMATION REGARDING HER WORKPLACE TESTING REQUIREMENT. INTERMINT HEME. PASSED VISIBLE KIDNEY STONE THIS AM. CURRENT MEDICATIONS TAKING CRANBERRY 500 MG CAPSULE ORALLY TAKING VITAMIN B-12 250 MCG TABLET 1 TABLET ORALLY ONCE A DAY TAKING VITAMIN D (ERGOCALCIFEROL) 54473 UNIT CAPSULE 1 CAPSULE ORALLY TWICE A WEEK TAKING MULTIPLE VITAMIN 2 TABLETS TABLET DIRECTED ORALLY TAKING OPTIVAR 0.05 % SOLUTION 1 DROP INTO BOTH EYES OPHTHALMIC TWICE A DAY TAKING BENADRYL 25 MG CAPSULE 1 CAPSULE NEEDED ORALLY PRN TAKING COLACE 100 MG CAPSULE 1 CAPSULE NEEDED ORALLY BID TAKING HIGH POTENCY IRON 134 MG TABLET 1 TABLET ORALLY THREE TIMES A DAY TAKING VITAMIN C 100 MG TABLET 1 TABLET ORALLY THREE TIMES A DAY TAKING VITAMIN D 400 UNIT CAPSULE ORALLY ONCE A DAY TAKING PROBIOTIC CAPSULE ORALLY DAILY TAKING ZYRTEC ALLERGY 10 MG TABLET 1 TABLET NEEDED ORALLY ONCE A DAY TAKING GABAPENTIN 300 MG CAPSULE 1 CAP ORALLY TWICE A DAY TAKING KEFLEX 500 MG CAPSULE 1 CAPSULE ORALLY TID PRN TAKING TRAMADOL HCL 50 MG TABLET 1 TABLET NEEDED ORALLY 1-2 Q 6 HRS PRN PAIN CHRONIC PAIN MDD=6 TAKING VENLAFAXINE HCL ER 37.5 MG CAPSULE EXTENDED RELEASE 24 HOUR 1 CAPSULE ORALLY 2 IN AM, 1 AT HS TAKING PERCOCET 10-325 MG TABLET 1 TABLET ORALLY EVERY4 HRS PRN PAIN MDD=6 TAKING RIZATRIPTAN BENZOATE 10 MG TABLET 1 TABLET NEEDED ONE TIME ORALLY AT ONSET OF MIGRAINE AND MAY REPEAT X 1 IN 2 HOURS IF NEEDED TAKING OXYBUTYNIN CHLORIDE ER 10 MG TABLET EXTENDED RELEASE 24 HOUR 1 TABLET ORALLY ONCE A DAY NOT-TAKING FOSFOMYCIN 3 G DISSOVED IN 4 OZ WATER 3 G DISSOLVED IN 4 OZ OF WATER ORALLY ONE DOSE WEEKLY NOT-TAKING CEPHALEXIN 500 MG CAPSULE 1 CAPSULE ORALLY TWICE A DAY NOT-TAKING FENUGREEK 610 MG CAPSULE ORALLY TID MEDICATION LIST REVIEWED AND RECONCILED WITH THE PATIENT PAST MEDICAL HISTORY KIDNEY STONES HYPERTENSION SEASONAL DEPRESSION ALLERGIES BACTRIM: RASH: ALLERGY VICODIN: DYSPNEA: ALLERGY DILAUDID: NAUSEA/VOMITING: SIDE EFFECTS LEVAQUIN: NAUSEA/VOMITING: SIDE EFFECTS IV DYE: HIVES: ALLERGY SULFA (FOR ALLERGY USE ONLY): CONTRAINDICATED (BACTRIM) ALLERGY: ALLERGY GREEN DYE IN GEL CAPS: HIVES: ALLERGY EXCEDRIN MIGRAINE: HIVES: ALLERGY SOCIAL HISTORY GENERAL: TOBACCO USE ARE YOU A:NONSMOKER ANGLICAN [id number] SYNAGOGUE LEARNING BARRIERS / SPECIAL NEEDS ORIENTED TO PLAN OF CARE: PATIENT, PAIN MANAGEMENT PATIENT, ORIENTED TO PLAN OF CARE: PATIENT, PAIN MANAGEMENT PATIENT. NEW PATIENT PAIN DIARY TODAY'S VISITNOTES FROM 0-10, WHAT LEVEL IS YOUR PAIN TODAY?0 PAIN CLINIC PFS, CLERGY, PUBLIC HEALTH REFERRALS PFS REFERRAL NEEDED?NO PFS REFERRAL NEEDED?NO CLERGY REFERRAL NEEDED?NO CLERGY REFERRAL NEEDED?NO PUBLIC HEALTH REFERRAL NEEDED?NO PUBLIC HEALTH REFERRAL NEEDED?NO WAS THE PROVIDER NOTIFIED OF ANY PERTINENT INFO?NO WAS THE PROVIDER NOTIFIED OF ANY PERTINENT INFO?NO ADVANCE DIRECTIVES HEALTH CARE PROXY?YES NAME OF HCP FATHER / WILL BE CHANGING THIS IN FUTURE CONTACT # FOR HCP [phone] REVIEW OF SYSTEMS REVIEWED BY: PROVIDER: . CONSTITUTIONAL: ANY CHANGE IN YOUR MEDICAL CONDITION? NO . CHILLS NO . FEVER NO . INFECTION: DO YOU HAVE NEW INFECTIONS? NO . DO YOU HAVE HISTORY OF MRSA? NO . MUSCULOSKELETAL: ANY NEW PATTERNS OF PAIN OR NUMBNESS? NO . GASTROENTEROLOGY: ANY NEW CHANGE IN BOWEL CONTROL? NO . GENITOURINARY: ANY NEW CHANGE IN BLADDER CONTROL? NO . IS THERE A CHANCE YOU COULD BE ? NO . HEMATOLOGY/LYMPH: DO YOU TAKE ANY BLOOD THINNERS? (FOR EXAMPLE- COUMADIN, PLAVIX, AGGRENOX, PLATEL, PRADAXA, OR XARELTO) NO . WHEN WAS YOUR LAST DOSE? DATE: TIME: . NEUROLOGY: HAVE YOU FALLEN IN THE PAST 6 MONTHS? NO . ANY NEW EXTREMITY NUMBNESS OR WEAKNESS? NO . CARDIOLOGY: DO YOU HAVE A PACEMAKER OR DEFIBRILLATOR? NO . RESPIRATORY: HAVE YOU BEEN SICK IN THE PAST WEEK? NO . FEVER NO . FLU LIKE SYMPTOMS? NO . COUGH NO . INTEGUMENTARY: DO YOU HAVE ANY RASHES OR OPEN SORES? NO . ALLERGIC/IMMUNO: ARE YOU ALLERGIC TO SHELLFISH OR IV DYE? YES, IVP DYE . ANY NEW ALLERGIES? NO . PSYCHIATRIC: DO YOU HAVE THOUGHTS OF HURTING YOURSELF OR SOMEONE ELSE? NO . ARE YOU ABUSED, NEGLECTED, OR IN AN UNSAFE ENVIRONMENT? NO . ENDOCRINOLOGY: ARE YOU DIABETIC? NO . OTHER: DO YOU NEED ANY PRESCRIPTIONS? NO . IF YES, PLEASE LIST: ____ . ANY NEW PROBLEMS WITH YOUR MEDICATIONS? NO . WHEN DID YOU LAST EAT? ____ . WHEN DID YOU LAST DRINK? ____ . WHAT DID YOU LAST DRINK? ____ . NAME OF PERSON DRIVING YOU HOME? ____ . DO YOU HAVE ANY OTHER QUESTIONS OR CONCERNS NO . VITAL SIGNS WT 225.0 LBS, HT 66", BMI 36.31 INDEX, BP 139/69 MM HG, HR 96 /MIN, RR 16 /MIN, TEMP 96.7 F, OXYGEN SAT % 96%, NA INITIALS TL 1035, REVIEWED BY: NL. EXAMINATION GENERAL EXAMINATION: ABDOMEN:TENDER TO PALPATION, BS ACTIVE, POS CVA TENDERNESS. ASSESSMENTS GENERALIZED ABDOMINAL PAIN - R10.84 (PRIMARY) TREATMENT GENERALIZED ABDOMINAL PAIN REFILL OXYBUTYNIN CHLORIDE ER TABLET EXTENDED RELEASE 24 HOUR, 10 MG, 1 TABLET, ORALLY, ONCE A DAY, 30 DAY(S), 30, REFILLS 3 NOTES: UTOX TODAY. PROCEDURE CODES FA211 ESTABILISHED PATIENT [facility] CHARGE DISPOSITION & COMMUNICATION FOLLOW UP 08/18 WEEK (REASON: ABD PAIN) ELECTRONICALLY SIGNED BY RAND DIANE ON 07/20/2017 AT 08:35 AM EST DISCLAIMER : THIS IS A VISIT SUMMARY EXTRACTED FROM THE [employer] CHART. IT IS NOT A COPY OF THE [employer] PROGRESS NOTE. JEANETTE
== END ==
LOC: M PAIN 09:45
PROVIDERS: ATTEND Nurse Practitioner Family
DX: R10.84 Generalized abdominal pain (principal); N39.0 Urinary tract infection, site not specified; N20.0 Calculus of kidney; R31.9 Hematuria, unspecified; Z79.2 Long term (current) use of antibiotics; Z79.891 Long term (current) use of opiate analgesic

== ENCOUNTER → 2017-08-20 | Outpatient (CLI) | payer OTHER | LOC: M PAIN 11:30 | DX: R10.84 Generalized abdominal pain (principal); M79.2 Neuralgia and neuritis, unspecified; I10 Essential (primary) hypertension; J30.89 Other allergic rhinitis; Z88.1 Allergy status to other antibiotic agents; Z88.2 Allergy status to sulfonamides; Z88.5 Allergy status to narcotic agent; Z88.8 Allergy status to other drugs, medicaments and biological substances; Z91.041 Radiographic dye allergy status; Z79.891 Long term (current) use of opiate analgesic; Z79.899 Other long term (current) drug therapy | CPT/HCPCS: G0463 ==

== ENCOUNTER → 2017-09-06 | Outpatient (CLI) | payer OTHER | LOC: M PAIN 11:45 | DX: R10.84 Generalized abdominal pain (principal); M79.2 Neuralgia and neuritis, unspecified; Z79.891 Long term (current) use of opiate analgesic; Z79.899 Other long term (current) drug therapy; Z88.1 Allergy status to other antibiotic agents; Z88.2 Allergy status to sulfonamides; Z88.5 Allergy status to narcotic agent; Z88.8 Allergy status to other drugs, medicaments and biological substances; Z91.041 Radiographic dye allergy status; Z91.048 Other nonmedicinal substance allergy status | CPT/HCPCS: G0463 ==

== ENCOUNTER → 2017-10-15 | Outpatient (CLI) | payer OTHER | LOC: M PAIN 15:00 | DX: R10.84 Generalized abdominal pain (principal); M79.2 Neuralgia and neuritis, unspecified; Z79.891 Long term (current) use of opiate analgesic; Z79.899 Other long term (current) drug therapy; Z98.84 Bariatric surgery status; Z94.0 Kidney transplant status; Z96.0 Presence of urogenital implants; Z88.0 Allergy status to penicillin; Z91.041 Radiographic dye allergy status; Z91.048 Other nonmedicinal substance allergy status | CPT/HCPCS: G0463 ==

== ENCOUNTER → 2017-10-25 | Outpatient (REF) | payer OTHER ==
[2017-10-25 11:55] LABS: APPEARANCE, URINE HAZY (CLEAR); BACTERIA, URINE AUTO NEGATIVE (NEGATIVE); BILIRUBIN, URINE AUTO NEGATIVE (NEGATIVE); BLOOD, URINE BLOOD NEGATIVE (NEGATIVE); COLOR, URINE YELLOW (YELLOW); GLUCOSE, URINE (UA) AUTO NEGATIVE (NEGATIVE); KETONE, URINE AUTO NEGATIVE (NEGATIVE); LEUKOCYTE ESTERASE, URINE AUTO NEGATIVE (NEGATIVE); MUCUS, URINE SMALL (NEGATIVE); NITRITE, URINE AUTO NEGATIVE (NEGATIVE); PROTEIN, URINE AUTO NEGATIVE (NEGATIVE); RBC, URINE AUTO 6 /HPF (0-3); SPECIFIC GRAVITY URINE AUTO 1.023 (1.002-1.035); SQUAMOUS EPITHELIAL CELL UR AU 5 /HPF (0-6); UROBILINOGEN, URINE AUTO 0.2 mg/dL (0.0-2.0); WBC, URINE AUTO 1 /HPF (0-3); YEAST LIKE CELL URINE AUTO SMALL
== END ==
LOC: M SFHCPLAZ 11:30
DX: N39.0 Urinary tract infection, site not specified (principal)

== ENCOUNTER 2017-11-02 12:28 | Emergency (ER) | payer OTHER ==
[2017-11-02 13:04] LABS: KETONE, URINE AUTO RFX NEGATIVE (NEGATIVE); LEUKOCYTE ESTERASE UR AUTO RFX 2+ (NEGATIVE); MUCUS, URINE RFX SMALL (NEGATIVE); NITRITE, URINE AUTO RFX NEGATIVE (NEGATIVE); RBC, URINE AUTO RFX 11 /HPF (0-3); SPECIFIC GRAVITY UR AUTO RFX 1.014 (1.002-1.035); SQUAM EPITHELIAL CELL UR AURFX 5 /HPF (0-6); WBC, URINE AUTO RFX 59 /HPF (0-3)
[2017-11-02 13:21] LABS: CONTROL LINE UCG INT CTR LINE PRESENT; URINE PREG TEST NEGATIVE (NEGATIVE)
[2017-11-02] MEDS: NS 1,000 ML IV (13:49)
[2017-11-02] MEDS: ONDANSETRON 4MG/2ML VIAL (J2405) IV (13:49)
[2017-11-02 13:58] LABS: BASO % 0.6 % (0.0-1.0); EOS # 0.1 10^3/uL (0.0-0.50); EOS % 2.1 % (0.0-3.0); IMMATURE GRANULOCYTE % 0.7 % (0-3.0); LYMPH # 1.6 10^3/uL (1.5-4.5); LYMPH % 23.7 % (24.0-44.0); MEAN CORPUSCULAR HGB CONC 33.3 g/dl (32.0-36.5); MEAN CORPUSCULAR VOLUME 96.1 fl (80.0-96.0); MONO # 0.7 10^3/uL (0.0-0.8); MONO % 10.6 % (0.0-5.0); NEUTROPHILS # 4.2 10^3/uL (1.8-7.7); NEUTROPHILS % 62.3 % (36.0-66.0); PLATELET COUNT, AUTOMATED 222 10^3/uL (150-450); RED BLOOD COUNT 4.06 10^6/uL (4.00-5.40); RED CELL DISTRIBUTION WIDTH 12.4 % (11.5-14.5); WHITE BLOOD COUNT 6.8 10^3/uL (4.0-10.0)
[2017-11-02] MEDS: traMADol 50 MG TAB PO (14:24)
[2017-11-02 14:25] LABS: ANION GAP 9 MEQ/L (8-16); BLOOD UREA NITROGEN 15 MG/DL (7-18); CALCIUM LEVEL 9.4 MG/DL (8.5-10.1); CARBON DIOXIDE LEVEL 26 MEQ/L (21-32); CHLORIDE LEVEL 104 MEQ/L (98-107); CREATININE FOR GFR 0.76 MG/DL (0.55-1.30); GLOMERULAR FILTRATION RATE > 60.0 (>58); GLUCOSE, FASTING 89 MG/DL (70-100); POTASSIUM SERUM 3.8 MEQ/L (3.5-5.1); SODIUM LEVEL 139 MEQ/L (136-145)
[2017-11-02 15:04] LABS: LACTIC ACID SEPSIS PROTOCOL 2.1 MMOL/L (0.4-2.0)
[2017-11-02] MEDS: PERCOCET 5MG/325MG TAB PO (15:52)
[2017-11-02] MEDS: CEFTRIAXONE SOD 1 GM in APPROPRIATE DILUENT 1 EA IV (15:52)
== END 2017-11-02 16:55 | disposition home or self-care (01) ==
LOC: M ED 12:28
DX: N30.21 Other chronic cystitis with hematuria (principal); I10 Essential (primary) hypertension; Z87.440 Personal history of urinary (tract) infections; Q61.5 Medullary cystic kidney; J30.2 Other seasonal allergic rhinitis; Z98.84 Bariatric surgery status; Z79.899 Other long term (current) drug therapy; Z91.041 Radiographic dye allergy status; Z88.2 Allergy status to sulfonamides; Z88.8 Allergy status to other drugs, medicaments and biological substances; Z88.5 Allergy status to narcotic agent
CPT/HCPCS: J2405

== ENCOUNTER → 2017-11-16 | Outpatient (REF) | payer OTHER ==
[2017-11-16 16:09] LABS: APPEARANCE, URINE HAZY (CLEAR); BACTERIA, URINE AUTO NEGATIVE (NEGATIVE); BILIRUBIN, URINE AUTO NEGATIVE (NEGATIVE); BLOOD, URINE BLOOD NEGATIVE (NEGATIVE); COLOR, URINE YELLOW (YELLOW); GLUCOSE, URINE (UA) AUTO NEGATIVE (NEGATIVE); KETONE, URINE AUTO TRACE mg/dL (NEGATIVE); LEUKOCYTE ESTERASE, URINE AUTO NEGATIVE (NEGATIVE); MUCUS, URINE SMALL (NEGATIVE); NITRITE, URINE AUTO NEGATIVE (NEGATIVE); PROTEIN, URINE AUTO NEGATIVE (NEGATIVE); RBC, URINE AUTO 8 /HPF (0-3); SPECIFIC GRAVITY URINE AUTO 1.021 (1.002-1.035); SQUAMOUS EPITHELIAL CELL UR AU 11 /HPF (0-6); UROBILINOGEN, URINE AUTO 0.2 mg/dL (0.0-2.0); WBC, URINE AUTO 1 /HPF (0-3)
== END ==
LOC: M SFHCPLAZ 15:41
DX: B96.1 Klebsiella pneumoniae [K. pneumoniae] as the cause of diseases classified elsewhere (principal)

== ENCOUNTER → 2018-01-05 | Outpatient (REF) | payer OTHER ==
[2018-01-05 15:19] LABS: APPEARANCE, URINE CLOUDY (CLEAR); BACTERIA, URINE AUTO 3+ (NEGATIVE); BILIRUBIN, URINE AUTO NEGATIVE (NEGATIVE); BLOOD, URINE BLOOD 1+ (NEGATIVE); COLOR, URINE YELLOW (YELLOW); GLUCOSE, URINE (UA) AUTO NEGATIVE (NEGATIVE); KETONE, URINE AUTO NEGATIVE (NEGATIVE); LEUKOCYTE ESTERASE, URINE AUTO 2+ (NEGATIVE); NITRITE, URINE AUTO NEGATIVE (NEGATIVE); PROTEIN, URINE AUTO NEGATIVE (NEGATIVE); RBC, URINE AUTO 5 /HPF (0-3); SPECIFIC GRAVITY URINE AUTO 1.014 (1.002-1.035); SQUAMOUS EPITHELIAL CELL UR AU 31 /HPF (0-6); UROBILINOGEN, URINE AUTO 0.2 mg/dL (0.0-2.0); WBC, URINE AUTO 37 /HPF (0-3)
== END ==
LOC: M LAB REF 14:32
DX: N39.0 Urinary tract infection, site not specified (principal)
CPT/HCPCS: 81001

== ENCOUNTER → 2018-01-07 | Outpatient (CLI) | payer OTHER ==
[2018-01-07 13:27] LABS: BASO # 0.1 10^3/uL (0.0-0.2); BASO % 0.7 % (0.0-1.0); EOS # 0.2 10^3/uL (0.0-0.50); EOS % 3.3 % (0.0-3.0); HEMATOCRIT 42.5 % (36.0-47.0); HEMOGLOBIN 14.5 g/dl (12.0-15.5); IMMATURE GRANULOCYTE % 1.1 % (0-3.0); LYMPH # 2.1 10^3/uL (1.5-4.5); LYMPH % 28.7 % (24.0-44.0); MEAN CORPUSCULAR HEMOGLOBIN 31.9 pg (27.0-33.0); MEAN CORPUSCULAR HGB CONC 34.1 g/dl (32.0-36.5); MEAN CORPUSCULAR VOLUME 93.6 fl (80.0-96.0); MONO # 0.6 10^3/uL (0.0-0.8); MONO % 8.4 % (0.0-5.0); NEUTROPHILS # 4.2 10^3/uL (1.8-7.7); NEUTROPHILS % 57.8 % (36.0-66.0); PLATELET COUNT, AUTOMATED 231 10^3/uL (150-450); RED BLOOD COUNT 4.54 10^6/uL (4.00-5.40); RED CELL DISTRIBUTION WIDTH 11.9 % (11.5-14.5); WHITE BLOOD COUNT 7.3 10^3/uL (4.0-10.0)
[2018-01-07 13:45] LABS: ALBUMIN 4.2 GM/DL (3.2-5.2); ALBUMIN/GLOBULIN RATIO 1.17 (1.00-1.93); ALKALINE PHOSPHATASE 63 U/L (45-117); ALT/SGPT 30 U/L (12-78); ANION GAP 8 MEQ/L (8-16); AST/SGOT 18 U/L (7-37); BILIRUBIN,TOTAL 0.4 MG/DL (0.2-1.0); BLOOD UREA NITROGEN 18 MG/DL (7-18); C REACTIVE PROTEIN QUANTITATIV 0.69 MG/DL (0.00-0.30); CALCIUM LEVEL 9.2 MG/DL (8.5-10.1); CARBON DIOXIDE LEVEL 24 MEQ/L (21-32); CHLORIDE LEVEL 108 MEQ/L (98-107); CREATININE FOR GFR 1.08 MG/DL (0.55-1.30); GLOMERULAR FILTRATION RATE 58.1 (>58); GLUCOSE, FASTING 138 MG/DL (70-100); POTASSIUM SERUM 4.1 MEQ/L (3.5-5.1); SODIUM LEVEL 140 MEQ/L (136-145); TOTAL PROTEIN 7.8 GM/DL (6.4-8.2)
== END ==
LOC: M LAB 12:54
DX: N30.01 Acute cystitis with hematuria (principal)
CPT/HCPCS: 80053

== ENCOUNTER 2018-01-16 16:46 | Inpatient (IN) | payer OTHER ==
[2018-01-16 17:02] LABS: BEDSIDE GLUCOSE 317 MG/DL (70-105)
[2018-01-16] MEDS ORDERED: ACETYLCYSTEINE 6000 MG/30 ML *IV* VIAL (J0132) As Ordered (17:29)
[2018-01-16] MEDS: NS 1,000 ML IV (17:37)
[2018-01-16] MEDS: NALOXONE INJ 2 MG/2 ML SYRINGE (J2310) IV (17:37)
[2018-01-16 17:39] LABS: BASO # 0.1 10^3/uL (0.0-0.2); BASO % 0.3 % (0.0-1.0); EOS # 0.2 10^3/uL (0.0-0.50); HEMATOCRIT 37.8 % (36.0-47.0); HEMOGLOBIN 12.7 g/dl (12.0-15.5); IMMATURE GRANULOCYTE % 1.4 % (0-3.0); LYMPH # 2.2 10^3/uL (1.5-4.5); LYMPH % 14.3 % (24.0-44.0); MEAN CORPUSCULAR HEMOGLOBIN 32.2 pg (27.0-33.0); MEAN CORPUSCULAR HGB CONC 33.6 g/dl (32.0-36.5); MEAN CORPUSCULAR VOLUME 95.7 fl (80.0-96.0); MONO # 1.3 10^3/uL (0.0-0.8); MONO % 8.6 % (0.0-5.0); NEUTROPHILS # 11.5 10^3/uL (1.8-7.7); NEUTROPHILS % 74.4 % (36.0-66.0); PLATELET COUNT, AUTOMATED 176 10^3/uL (150-450); RED BLOOD COUNT 3.95 10^6/uL (4.00-5.40); WHITE BLOOD COUNT 15.4 10^3/uL (4.0-10.0)
[2018-01-16] MEDS: ACETYLCYSTEINE IV ×3 (17:45→22:30)
[2018-01-16] MEDS: D5W IV ×3 (17:45→22:30)
[2018-01-16 17:53] LABS: CONTROL LINE HCG INT CTR LINE PRESENT; HCG, SERUM QUALITATIVE NEGATIVE (NEGATIVE)
[2018-01-16 17:59] LABS: AMPHETAMINES LEVEL URINE NEGATIVE (NEGATIVE); BARBITURATES URINE NEGATIVE (NEGATIVE); BENZODIAZEPINES URINE NEGATIVE (NEGATIVE); CANNABINOIDS URINE NEGATIVE (NEGATIVE); COCAINE METABOLITE URINE NEGATIVE (NEGATIVE); METHADONE URINE NEGATIVE (NEGATIVE); OPIATES URINE POSITIVE (NEGATIVE); PHENCYCLIDINE URINE NEGATIVE (NEGATIVE)
[2018-01-16 18:10] LABS: ACETAMINOPHEN LEVEL 174.3 UG/ML (10.0-30.0); ALBUMIN 3.9 GM/DL (3.2-5.2); ALKALINE PHOSPHATASE 54 U/L (45-117); ALT/SGPT 32 U/L (12-78); ANION GAP 11 MEQ/L (8-16); AST/SGOT 24 U/L (7-37); BILIRUBIN,DIRECT < 0.1 MG/DL (0.0-0.2); BILIRUBIN,TOTAL 0.1 MG/DL (0.2-1.0); BLOOD UREA NITROGEN 15 MG/DL (7-18); CALCIUM LEVEL 8.1 MG/DL (8.5-10.1); CARBON DIOXIDE LEVEL 24 MEQ/L (21-32); CHLORIDE LEVEL 104 MEQ/L (98-107); CPK CREATINE PHOSPHOKINASE 87 U/L (26-192); ETHYL ALCOHOL (ETHANOL) < 0.003 % (0.000-0.010); GLOMERULAR FILTRATION RATE > 60.0 (>58); GLUCOSE, FASTING 302 MG/DL (70-100); POTASSIUM SERUM 3.8 MEQ/L (3.5-5.1); SALICYLATE LEVEL < 1.7 MG/DL (5.0-30.0); SODIUM LEVEL 139 MEQ/L (136-145); TOTAL PROTEIN 6.9 GM/DL (6.4-8.2); VALPROIC ACID (DEPAKOTE) 19.3 UG/ML (50.0-100.0)
[2018-01-16 18:41] LABS: ABG BASE EXCESS -5.4 (-2.0-2.0); ABG O2 SATURATION 97.4 % (95.0-99.0); ABG PARTIAL PRESSURE CO2 33.9 mmHg (35.0-45.0); ABG PARTIAL PRESSURE O2 98.7 mmHg (75.0-100.0); ABG TOTAL CO2 20.1 MEQ/L (22.0-29.0); ABG pH (ARTERIAL) 7.367 UNITS (7.350-7.450)
[2018-01-16] MEDS ORDERED: BISACODYL 10 MG SUPP PR (23:30)
[2018-01-17 00:45] LABS: ESTIMATED AVERAGE GLUCOSE 91 MG/DL (60-110); HEMOGLOBIN A1c 4.8 %
[2018-01-17] MEDS: NS 1,000 ML IV ×3 (01:09→12:48)
[2018-01-17 02:43] LABS: INR 1.05; PROTHROMBIN TIME 13.8 SECONDS (12.4-14.5)
[2018-01-17 02:50] LABS: ACETAMINOPHEN LEVEL 13.6 UG/ML (10.0-30.0); ANION GAP 8 MEQ/L (8-16); BLOOD UREA NITROGEN 9 MG/DL (7-18); CALCIUM LEVEL 8.1 MG/DL (8.5-10.1); CARBON DIOXIDE LEVEL 26 MEQ/L (21-32); CHLORIDE LEVEL 108 MEQ/L (98-107); CREATININE FOR GFR 0.68 MG/DL (0.55-1.30); GLOMERULAR FILTRATION RATE > 60.0 (>58); GLUCOSE, FASTING 80 MG/DL (70-100); POTASSIUM SERUM 4.2 MEQ/L (3.5-5.1); SODIUM LEVEL 142 MEQ/L (136-145)
[2018-01-17] MEDS: HEPARIN SOD (PORCINE) 5000 UNITS/ML VIAL SC ×2 (05:35→15:29)
[2018-01-17] MEDS: ONDANSETRON 4MG/2ML VIAL (J2405) IV (12:25)
[2018-01-17 12:39] LABS: INR 1.05; PROTHROMBIN TIME 13.8 SECONDS (12.4-14.5)
[2018-01-17 12:54] LABS: ACETAMINOPHEN LEVEL 3.1 UG/ML (10.0-30.0); ALBUMIN 3.4 GM/DL (3.2-5.2); ALBUMIN/GLOBULIN RATIO 1.26 (1.00-1.93); ALKALINE PHOSPHATASE 44 U/L (45-117); ALT/SGPT 26 U/L (12-78); ANION GAP 7 MEQ/L (8-16); AST/SGOT 16 U/L (7-37); BILIRUBIN,DIRECT < 0.1 MG/DL (0.0-0.2); BILIRUBIN,TOTAL 0.2 MG/DL (0.2-1.0); BLOOD UREA NITROGEN 6 MG/DL (7-18); CARBON DIOXIDE LEVEL 24 MEQ/L (21-32); CHLORIDE LEVEL 112 MEQ/L (98-107); CREATININE FOR GFR 0.56 MG/DL (0.55-1.30); GLOMERULAR FILTRATION RATE > 60.0 (>58); GLUCOSE, FASTING 109 MG/DL (70-100); POTASSIUM SERUM 3.9 MEQ/L (3.5-5.1); SODIUM LEVEL 143 MEQ/L (136-145); TOTAL PROTEIN 6.1 GM/DL (6.4-8.2)
== END 2018-01-17 17:38 | DRG 918 ==
LOC: M ED INP 23:28 → M ICU 01-17 00:27 → M ED 16:46 → M ICU 23:28
PROVIDERS: Internal Medicine
DX: T40.2X2A Poisoning by other opioids, intentional self-harm, initial encounter (principal); F33.2 Major depressive disorder, recurrent severe without psychotic features; Z94.0 Kidney transplant status; N18.9 Chronic kidney disease, unspecified; J30.9 Allergic rhinitis, unspecified; Z79.899 Other long term (current) drug therapy; Z91.041 Radiographic dye allergy status; Z88.2 Allergy status to sulfonamides; Z88.1 Allergy status to other antibiotic agents; Z88.8 Allergy status to other drugs, medicaments and biological substances; Z88.5 Allergy status to narcotic agent; Z87.442 Personal history of urinary calculi; Y92.009 Unspecified place in unspecified non-institutional (private) residence as the place of occurrence of the external cause

== ENCOUNTER 2018-01-17 17:43 | Inpatient (IN) | payer OTHER ==
[~2018-01-17 17:43] MED LIST changes: -/HYDR10T PO; -/LORA10TA PO; -/MOM400 PO; -/ONDA4TA PO; -/TAMS4CA PO; -ACET50TA PO; -ALLERGY EYE DROPS OU; -ALLO100T OR; -ARTHROTEC PO; -AZEL0.1S3; -Advil PM PO; -BACL10TA2 OR; -BENA25CA PO; -CALCTAB54 PO; -CETI10TA PO; -CLAR5CHW PO; -CLON0.1T PO; -DETR1TAB4 PO; -DIPH25CA PO; -DITR5TAB PO; -DOCU10CA PO; -DOCU10ELUD PO; -FERR150C PO; -FLOM5CAP PO; -FLOVENT INH; -HYDR25TA6 OR; -HYDR50TA8 PO; -IRON27TA PO; -KETO-28 PO; -KETO10TAB PO; -LASI20TA PO; -LEVO750T PO; -LISI10TA4 OR; +MAALOX 30 ML SUSP *UDC PO; +MOM 30ML SUSPENSION UDC PO; -MORP-39 PO; -MULTIVIT PO; -NEUR100C PO; -NEUR300C PO; -NITR100C39 PO; -NUCY200T PO; -NUCY75TA PO; -OPTIVAR OU; -OXYC-208 PO; -OXYC-517 PO; -PERC5TAB8 OR; -PERC5TAB8 PO; -PERC7.5T12 PO; -POTASSIUM CITRATE1 PO; -PROG200C PO; -PROM25SU5 PO; -PROM25TA PO; -PROM25TA3 PO; -SLOW45TA PO; -SUDA30TA PO; -TRAM50TA2 OR; -TRAM50TA2 PO; -TRUBCAP PO; -ULTR50TA PO; -VALI5TAB PO; -VENL37.5 OR; -VIT D 4000 PO; -VITA1CHW8 PO; -VITA1DRO SL; -VITA500C3 PO; -VITA500L3 PO; -ZOFR20TA PO; -ZOFR4SOL PO; -ZYLO300T4 PO; -ZYRT10TA2 PO; -[UNRECOGNIZED DRUG - CODE] AU; -[UNRECOGNIZED DRUG - CODE] OU; -[UNRECOGNIZED DRUG - CODE] PO; -[UNRECOGNIZED DRUG - OTHER] AD; -[UNRECOGNIZED DRUG - OTHER] PO; -morphine IR PO
[2018-01-17] MEDS ORDERED: DOCUSATE SODIUM 100 MG CAP PO (19:30)
[2018-01-17] MEDS: ASCORBIC ACID 500 MG TAB PO (21:00)
[2018-01-17] MEDS: GABAPENTIN 300 MG CAP PO (21:01)
[2018-01-17] MEDS: tiZANidine 4 MG TAB PO (21:01)
[2018-01-17] MEDS: FERROUS SULFATE 325MG TAB PO (21:01)
[2018-01-17] MEDS: traZODone 50 MG TAB PO (21:01)
[2018-01-17] MEDS: CEPHALEXIN 500 MG CAP PO (21:01)
[2018-01-17] MEDS: diphenhydrAMINE 25 MG CAP PO (21:02)
[2018-01-18] MEDS: tiZANidine 4 MG TAB PO (08:27)
[2018-01-18] MEDS: CYANOCOBALAMIN 500 MCG TAB PO (08:27)
[2018-01-18] MEDS: ASCORBIC ACID 500 MG TAB PO ×2 (08:27→20:52)
[2018-01-18] MEDS: VITAMIN B COMPLEX/VIT C CAP PO (08:27)
[2018-01-18] MEDS: CEPHALEXIN 500 MG CAP PO ×3 (08:28→20:52)
[2018-01-18] MEDS: FERROUS SULFATE 325MG TAB PO ×3 (08:28→20:52)
[2018-01-18] MEDS: MULTIVITAMINS/MINERALS THERAP 1 TAB PO (08:29)
[2018-01-18 10:33] LABS: HEMATOCRIT 34.4 % (36.0-47.0); HEMOGLOBIN 11.7 g/dl (12.0-15.5); MEAN CORPUSCULAR HEMOGLOBIN 32.3 pg (27.0-33.0); PLATELET COUNT, AUTOMATED 165 10^3/uL (150-450); RED BLOOD COUNT 3.62 10^6/uL (4.00-5.40); RED CELL DISTRIBUTION WIDTH 12.3 % (11.5-14.5)
[2018-01-18 11:01] LABS: ALBUMIN 3.6 GM/DL (3.2-5.2); ALBUMIN/GLOBULIN RATIO 1.33 (1.00-1.93); ALKALINE PHOSPHATASE 45 U/L (45-117); ALT/SGPT 24 U/L (12-78); ANION GAP 6 MEQ/L (8-16); AST/SGOT 16 U/L (7-37); BILIRUBIN,TOTAL 0.2 MG/DL (0.2-1.0); BLOOD UREA NITROGEN 9 MG/DL (7-18); CALCIUM LEVEL 9.1 MG/DL (8.5-10.1); CARBON DIOXIDE LEVEL 26 MEQ/L (21-32); CHLORIDE LEVEL 111 MEQ/L (98-107); CREATININE FOR GFR 0.77 MG/DL (0.55-1.30); GLOMERULAR FILTRATION RATE > 60.0 (>58); GLUCOSE, FASTING 131 MG/DL (70-100); POTASSIUM SERUM 4.2 MEQ/L (3.5-5.1); SODIUM LEVEL 143 MEQ/L (136-145); TOTAL PROTEIN 6.3 GM/DL (6.4-8.2)
[2018-01-18] MEDS ORDERED: hydrOXYzine 25 MG TAB PO (11:45)
[2018-01-18] MEDS: GABAPENTIN 300 MG CAP PO ×2 (12:49→20:53)
[2018-01-18] MEDS: ACETAMINOPHEN 500 MG TAB PO (16:15)
[2018-01-18] MEDS: NORTRIPTYLINE 25 MG CAP PO (20:52)
[2018-01-19] MEDS: tiZANidine 4 MG TAB PO (04:11)
[2018-01-19] MEDS: ACETAMINOPHEN 500 MG TAB PO (04:13)
[2018-01-19 07:52] LABS: ALBUMIN 3.5 GM/DL (3.2-5.2); ALBUMIN/GLOBULIN RATIO 1.35 (1.00-1.93); ALKALINE PHOSPHATASE 40 U/L (45-117); ALT/SGPT 23 U/L (12-78); ANION GAP 6 MEQ/L (8-16); AST/SGOT 15 U/L (7-37); BILIRUBIN,TOTAL 0.2 MG/DL (0.2-1.0); BLOOD UREA NITROGEN 17 MG/DL (7-18); CALCIUM LEVEL 8.8 MG/DL (8.5-10.1); CARBON DIOXIDE LEVEL 29 MEQ/L (21-32); CHLORIDE LEVEL 110 MEQ/L (98-107); CREATININE FOR GFR 0.76 MG/DL (0.55-1.30); GLOMERULAR FILTRATION RATE > 60.0 (>58); GLUCOSE, FASTING 86 MG/DL (70-100); SODIUM LEVEL 145 MEQ/L (136-145); TOTAL PROTEIN 6.1 GM/DL (6.4-8.2)
[2018-01-19] MEDS: ASCORBIC ACID 500 MG TAB PO ×2 (08:20→21:46)
[2018-01-19] MEDS: FERROUS SULFATE 325MG TAB PO ×3 (08:20→21:46)
[2018-01-19] MEDS: CYANOCOBALAMIN 500 MCG TAB PO (08:20)
[2018-01-19] MEDS: CEPHALEXIN 500 MG CAP PO ×3 (08:20→21:46)
[2018-01-19] MEDS: VITAMIN B COMPLEX/VIT C CAP PO (08:20)
[2018-01-19] MEDS: MULTIVITAMINS/MINERALS THERAP 1 TAB PO (08:20)
[2018-01-19] MEDS: GABAPENTIN 300 MG CAP PO ×3 (08:21→21:46)
[2018-01-19] MEDS: VENLAFAXINE **XR** 37.5 MG CAPSULE PO (10:25)
[2018-01-19] MEDS: BUPRENORPHINE/NALOXONE 8-2MG SUBLINGUAL TABLET(SUBOXONE) SL ×2 (10:25→21:47)
[2018-01-19] MEDS: PILL CRUSHER/CUTTER 1 EACH XX (10:25)
[2018-01-19] MEDS: cloNIDine 0.1 MG TAB PO ×2 (16:00→21:50)
[2018-01-19] MEDS: NORTRIPTYLINE 25 MG CAP PO (21:46)
[2018-01-19] MEDS: traZODone 50 MG TAB PO (21:51)
[2018-01-20] MEDS: tiZANidine 4 MG TAB PO (00:45)
[2018-01-20] MEDS: ACETAMINOPHEN 500 MG TAB PO ×3 (00:45→16:22)
[2018-01-20] MEDS: CYANOCOBALAMIN 500 MCG TAB PO (08:39)
[2018-01-20] MEDS: cloNIDine 0.1 MG TAB PO (08:39)
[2018-01-20] MEDS: ASCORBIC ACID 500 MG TAB PO ×2 (08:39→21:56)
[2018-01-20] MEDS: VITAMIN B COMPLEX/VIT C CAP PO (08:39)
[2018-01-20] MEDS: CEPHALEXIN 500 MG CAP PO ×3 (08:39→21:56)
[2018-01-20] MEDS: MULTIVITAMINS/MINERALS THERAP 1 TAB PO (08:39)
[2018-01-20] MEDS: FERROUS SULFATE 325MG TAB PO ×3 (08:39→21:56)
[2018-01-20] MEDS: GABAPENTIN 300 MG CAP PO ×3 (08:39→21:56)
[2018-01-20] MEDS: BUPRENORPHINE/NALOXONE 2-0.5MG SUBLINGUAL TABLET(SUBOXONE) SL ×2 (08:40→21:56)
[2018-01-20 11:14] LABS: ALBUMIN 3.8 GM/DL (3.2-5.2); ALBUMIN/GLOBULIN RATIO 1.27 (1.00-1.93); ALKALINE PHOSPHATASE 45 U/L (45-117); ALT/SGPT 34 U/L (12-78); ANION GAP 4 MEQ/L (8-16); AST/SGOT 28 U/L (7-37); BILIRUBIN,TOTAL 0.2 MG/DL (0.2-1.0); BLOOD UREA NITROGEN 18 MG/DL (7-18); CALCIUM LEVEL 9.5 MG/DL (8.5-10.1); CARBON DIOXIDE LEVEL 31 MEQ/L (21-32); CHLORIDE LEVEL 107 MEQ/L (98-107); CREATININE FOR GFR 0.69 MG/DL (0.55-1.30); GLOMERULAR FILTRATION RATE > 60.0 (>58); GLUCOSE, FASTING 88 MG/DL (70-100); POTASSIUM SERUM 3.8 MEQ/L (3.5-5.1); SODIUM LEVEL 142 MEQ/L (136-145); TOTAL PROTEIN 6.8 GM/DL (6.4-8.2)
[2018-01-20 11:34] LABS: HEMATOCRIT 32.7 % (36.0-47.0); HEMOGLOBIN 11.4 g/dl (12.0-15.5); MEAN CORPUSCULAR HEMOGLOBIN 32.8 pg (27.0-33.0); MEAN CORPUSCULAR HGB CONC 34.9 g/dl (32.0-36.5); PLATELET COUNT, AUTOMATED 152 10^3/uL (150-450); RED BLOOD COUNT 3.48 10^6/uL (4.00-5.40); RED CELL DISTRIBUTION WIDTH 12.3 % (11.5-14.5); WHITE BLOOD COUNT 6.4 10^3/uL (4.0-10.0)
[2018-01-20] MEDS ORDERED: SPIRONOLACTONE 25 MG TAB PO (12:00)
[2018-01-20 12:54] LABS: KETONE, URINE AUTO RFX NEGATIVE (NEGATIVE); LEUKOCYTE ESTERASE UR AUTO RFX NEGATIVE (NEGATIVE); NITRITE, URINE AUTO RFX NEGATIVE (NEGATIVE); RBC, URINE AUTO RFX 7 /HPF (0-3); SPECIFIC GRAVITY UR AUTO RFX 1.015 (1.002-1.035); SQUAM EPITHELIAL CELL UR AURFX 4 /HPF (0-6); WBC, URINE AUTO RFX 2 /HPF (0-3)
[2018-01-21] MEDS: ACETAMINOPHEN 500 MG TAB PO (02:21)
[2018-01-21] MEDS: tiZANidine 4 MG TAB PO (02:22)
[2018-01-21] MEDS: GABAPENTIN 300 MG CAP PO ×2 (08:08→21:31)
[2018-01-21] MEDS: MULTIVITAMINS/MINERALS THERAP 1 TAB PO (08:08)
[2018-01-21] MEDS: VITAMIN B COMPLEX/VIT C CAP PO (08:09)
[2018-01-21] MEDS: FERROUS SULFATE 325MG TAB PO ×3 (08:09→21:31)
[2018-01-21] MEDS: CYANOCOBALAMIN 500 MCG TAB PO (08:09)
[2018-01-21] MEDS: VITAMIN D 50,000 UNITS CAPSULE (ERGOCALCIFEROL 1.25MG) PO (08:09)
[2018-01-21] MEDS: CEPHALEXIN 500 MG CAP PO ×3 (08:09→21:31)
[2018-01-21] MEDS: ASCORBIC ACID 500 MG TAB PO ×2 (08:09→21:31)
[2018-01-21] MEDS: BUPRENORPHINE/NALOXONE 2-0.5MG SUBLINGUAL TABLET(SUBOXONE) SL (08:10)
[2018-01-21] MEDS: traMADol ER 100MG TABLET (ULTRAM ER) PO (15:09)
[2018-01-21] MEDS: DOXEPIN 25 MG CAP PO (21:31)
[2018-01-22] MEDS: ACETAMINOPHEN 500 MG TAB PO ×4 (06:52→18:49)
[2018-01-22] MEDS: GABAPENTIN 300 MG CAP PO ×3 (06:53→23:12)
[2018-01-22] MEDS: VITAMIN B COMPLEX/VIT C CAP PO (08:38)
[2018-01-22] MEDS: traMADol ER 100MG TABLET (ULTRAM ER) PO (08:38)
[2018-01-22] MEDS: CYANOCOBALAMIN 500 MCG TAB PO (08:38)
[2018-01-22] MEDS: ASCORBIC ACID 500 MG TAB PO ×2 (08:38→23:12)
[2018-01-22] MEDS: FERROUS SULFATE 325MG TAB PO ×3 (08:39→23:13)
[2018-01-22] MEDS: CEPHALEXIN 500 MG CAP PO ×3 (08:39→23:13)
[2018-01-22] MEDS: MULTIVITAMINS/MINERALS THERAP 1 TAB PO (08:39)
[2018-01-22] MEDS: DOXEPIN 25 MG CAP PO (23:12)
[2018-01-22] MEDS: diphenhydrAMINE 25 MG CAP PO (23:13)
[2018-01-23] MEDS: GABAPENTIN 300 MG CAP PO ×3 (05:24→21:09)
[2018-01-23] MEDS: ACETAMINOPHEN 500 MG TAB PO ×3 (05:25→19:08)
[2018-01-23] MEDS: CEPHALEXIN 500 MG CAP PO ×3 (08:59→21:08)
[2018-01-23] MEDS: MULTIVITAMINS/MINERALS THERAP 1 TAB PO (08:59)
[2018-01-23] MEDS: FERROUS SULFATE 325MG TAB PO ×3 (08:59→21:08)
[2018-01-23] MEDS: ASCORBIC ACID 500 MG TAB PO ×2 (08:59→21:08)
[2018-01-23] MEDS: VITAMIN B COMPLEX/VIT C CAP PO (08:59)
[2018-01-23] MEDS: traMADol ER 100MG TABLET (ULTRAM ER) PO (08:59)
[2018-01-23] MEDS: CYANOCOBALAMIN 500 MCG TAB PO (08:59)
[2018-01-23] MEDS: DOXEPIN 25 MG CAP PO (21:09)
[2018-01-24] MEDS ORDERED: UNRESOLVED CLARIFICATION ENTRY XX (00:01)
[2018-01-24] MEDS: GABAPENTIN 300 MG CAP PO ×3 (05:19→21:45)
[2018-01-24] MEDS: ACETAMINOPHEN 500 MG TAB PO ×2 (05:23→11:03)
[2018-01-24] MEDS: CYANOCOBALAMIN 500 MCG TAB PO (08:41)
[2018-01-24] MEDS: FERROUS SULFATE 325MG TAB PO ×3 (08:41→21:44)
[2018-01-24] MEDS: EYE OU (08:42)
[2018-01-24] MEDS: AZELASTINE 0.05% OU (08:42)
[2018-01-24] MEDS: CEPHALEXIN 500 MG CAP PO ×3 (08:42→21:44)
[2018-01-24] MEDS: MULTIVITAMINS/MINERALS THERAP 1 TAB PO (08:42)
[2018-01-24] MEDS: VITAMIN D 50,000 UNITS CAPSULE (ERGOCALCIFEROL 1.25MG) PO (08:42)
[2018-01-24] MEDS: traMADol ER 100MG TABLET (ULTRAM ER) PO (08:42)
[2018-01-24] MEDS: VITAMIN B COMPLEX/VIT C CAP PO (08:42)
[2018-01-24] MEDS: ASCORBIC ACID 500 MG TAB PO ×2 (08:43→21:44)
[2018-01-24] MEDS: traMADol 50 MG TAB PO ×2 (14:29→21:44)
[2018-01-24] MEDS: oxyBUTYnin *DITROPAN XL* 5 MG TABCR PO (14:48)
[2018-01-24] MEDS: DOXEPIN 25 MG CAP PO (21:45)
[2018-01-25] MEDS: traMADol 50 MG TAB PO ×3 (06:35→20:34)
[2018-01-25] MEDS: ACETAMINOPHEN 500 MG TAB PO ×2 (06:35→13:03)
[2018-01-25] MEDS: CEPHALEXIN 500 MG CAP PO ×3 (08:40→20:33)
[2018-01-25] MEDS: CYANOCOBALAMIN 500 MCG TAB PO (08:41)
[2018-01-25] MEDS: ASCORBIC ACID 500 MG TAB PO ×2 (08:42→20:33)
[2018-01-25] MEDS: FERROUS SULFATE 325MG TAB PO ×3 (08:42→20:34)
[2018-01-25] MEDS: MULTIVITAMINS/MINERALS THERAP 1 TAB PO (08:42)
[2018-01-25] MEDS: VITAMIN B COMPLEX/VIT C CAP PO (08:42)
[2018-01-25] MEDS: EYE OU (08:43)
[2018-01-25] MEDS: AZELASTINE 0.05% OU (08:43)
[2018-01-25] MEDS: GABAPENTIN 300 MG CAP PO ×2 (16:32→22:25)
[2018-01-25] MEDS: DOXEPIN 25 MG CAP PO (22:25)
[2018-01-26] MEDS: traMADol 50 MG TAB PO ×2 (04:39→12:24)
[2018-01-26] MEDS: ACETAMINOPHEN 500 MG TAB PO ×2 (04:40→12:23)
[2018-01-26] MEDS: CEPHALEXIN 500 MG CAP PO (08:26)
[2018-01-26] MEDS: CYANOCOBALAMIN 500 MCG TAB PO (08:26)
[2018-01-26] MEDS: VITAMIN B COMPLEX/VIT C CAP PO (08:26)
[2018-01-26] MEDS: ASCORBIC ACID 500 MG TAB PO (08:26)
[2018-01-26] MEDS: FERROUS SULFATE 325MG TAB PO (08:26)
[2018-01-26] MEDS: MULTIVITAMINS/MINERALS THERAP 1 TAB PO (08:26)
[2018-01-26] MEDS: EYE OU (08:27)
[2018-01-26] MEDS: AZELASTINE 0.05% OU (08:27)
[2018-01-26 14:06] LABS: APPEARANCE, URINE CLOUDY (CLEAR); BACTERIA, URINE AUTO NEGATIVE (NEGATIVE); BILIRUBIN, URINE AUTO NEGATIVE (NEGATIVE); BLOOD, URINE BLOOD NEGATIVE (NEGATIVE); COLOR, URINE YELLOW (YELLOW); GLUCOSE, URINE (UA) AUTO NEGATIVE (NEGATIVE); KETONE, URINE AUTO NEGATIVE (NEGATIVE); LEUKOCYTE ESTERASE, URINE AUTO NEGATIVE (NEGATIVE); NITRITE, URINE AUTO NEGATIVE (NEGATIVE); PROTEIN, URINE AUTO NEGATIVE (NEGATIVE); RBC, URINE AUTO 3 /HPF (0-3); SPECIFIC GRAVITY URINE AUTO 1.008 (1.002-1.035); SQUAMOUS EPITHELIAL CELL UR AU 6 /HPF (0-6); UROBILINOGEN, URINE AUTO 0.2 mg/dL (0.0-2.0); WBC, URINE AUTO 1 /HPF (0-3)
== END 2018-01-26 13:30 | disposition home or self-care (01) | DRG 885 ==
LOC: M PSY 17:43
DX: F33.2 Major depressive disorder, recurrent severe without psychotic features (principal); Z94.0 Kidney transplant status; F41.9 Anxiety disorder, unspecified; Z91.041 Radiographic dye allergy status; J30.9 Allergic rhinitis, unspecified; N18.9 Chronic kidney disease, unspecified; G89.29 Other chronic pain; N32.81 Overactive bladder; R10.32 Left lower quadrant pain; M79.2 Neuralgia and neuritis, unspecified; R26.89 Other abnormalities of gait and mobility; Z98.84 Bariatric surgery status; Z88.2 Allergy status to sulfonamides; Z88.8 Allergy status to other drugs, medicaments and biological substances; Z88.1 Allergy status to other antibiotic agents; Z87.442 Personal history of urinary calculi; Z91.5 Personal history of self-harm

== ENCOUNTER → 2018-02-10 | Outpatient (REF) | payer OTHER ==
[2018-02-10 14:03] LABS: FERRITIN 776 NG/ML (8-252); IRON (FE) 129 UG/DL (50-170); PERCENT SATURATION 52.9 % (13.2-45.0); TOTAL IRON BINDING CAPACITY 244 UG/DL (250-450)
== END ==
LOC: M LAB REF 13:11
DX: E61.1 Iron deficiency (principal)

== ENCOUNTER → 2018-03-15 | Outpatient (CLI) | payer OTHER | LOC: M PAIN 09:00 | DX: R10.84 Generalized abdominal pain (principal); M79.2 Neuralgia and neuritis, unspecified; I10 Essential (primary) hypertension; F32.9 Major depressive disorder, single episode, unspecified; N29 Other disorders of kidney and ureter in diseases classified elsewhere; Z79.891 Long term (current) use of opiate analgesic; Z79.899 Other long term (current) drug therapy; Z88.1 Allergy status to other antibiotic agents; Z88.5 Allergy status to narcotic agent; Z88.8 Allergy status to other drugs, medicaments and biological substances; Z91.048 Other nonmedicinal substance allergy status; Z91.041 Radiographic dye allergy status; Z98.84 Bariatric surgery status | CPT/HCPCS: G0463 ==

== ENCOUNTER → 2018-03-29 | Outpatient (CLI) | payer OTHER | LOC: M RAD 06:32 | DX: R10.84 Generalized abdominal pain (principal); M51.36 Other intervertebral disc degeneration, lumbar region; M51.37 Other intervertebral disc degeneration, lumbosacral region | CPT/HCPCS: 72148 ==

== ENCOUNTER → 2018-03-30 | Outpatient (CLI) | payer OTHER | LOC: M PAIN 11:45 | DX: M51.26 Other intervertebral disc displacement, lumbar region (principal); R10.84 Generalized abdominal pain; M54.16 Radiculopathy, lumbar region; I10 Essential (primary) hypertension; F33.9 Major depressive disorder, recurrent, unspecified; Q61.5 Medullary cystic kidney; Z79.891 Long term (current) use of opiate analgesic; Z79.899 Other long term (current) drug therapy; Z88.1 Allergy status to other antibiotic agents; Z88.5 Allergy status to narcotic agent; Z88.8 Allergy status to other drugs, medicaments and biological substances; Z91.02 Food additives allergy status; Z91.041 Radiographic dye allergy status; Z98.84 Bariatric surgery status | CPT/HCPCS: G0463 ==

== ENCOUNTER → 2018-05-17 | Outpatient (CLI) | payer OTHER | LOC: M PAIN 11:30 | DX: M51.26 Other intervertebral disc displacement, lumbar region (principal); R10.84 Generalized abdominal pain; M54.16 Radiculopathy, lumbar region; I10 Essential (primary) hypertension; Z87.442 Personal history of urinary calculi; Z87.440 Personal history of urinary (tract) infections; Q61.5 Medullary cystic kidney; F33.9 Major depressive disorder, recurrent, unspecified; Z88.2 Allergy status to sulfonamides; Z88.1 Allergy status to other antibiotic agents; Z88.6 Allergy status to analgesic agent; Z88.8 Allergy status to other drugs, medicaments and biological substances; Z88.5 Allergy status to narcotic agent; Z79.899 Other long term (current) drug therapy | CPT/HCPCS: G0463 ==

== ENCOUNTER → 2018-06-14 | Outpatient (CLI) | payer OTHER | LOC: M PAIN 14:15 | DX: M51.26 Other intervertebral disc displacement, lumbar region (principal); R10.84 Generalized abdominal pain; M54.16 Radiculopathy, lumbar region; I10 Essential (primary) hypertension; F32.9 Major depressive disorder, single episode, unspecified; F43.10 Post-traumatic stress disorder, unspecified; F41.9 Anxiety disorder, unspecified; Z79.891 Long term (current) use of opiate analgesic; Z79.899 Other long term (current) drug therapy; Z88.1 Allergy status to other antibiotic agents; Z88.5 Allergy status to narcotic agent; Z88.8 Allergy status to other drugs, medicaments and biological substances; Z91.041 Radiographic dye allergy status; Z91.09 Other allergy status, other than to drugs and biological substances; Z98.84 Bariatric surgery status | CPT/HCPCS: G0463 ==

== ENCOUNTER → 2018-06-14 | Outpatient (REF) | payer OTHER ==
[2018-06-14 21:32] LABS: APPEARANCE, URINE HAZY (CLEAR); BACTERIA, URINE AUTO 1+ (NEGATIVE); BILIRUBIN, URINE AUTO NEGATIVE (NEGATIVE); BLOOD, URINE BLOOD 2+ (NEGATIVE); COLOR, URINE YELLOW (YELLOW); GLUCOSE, URINE (UA) AUTO 1+ mg/dL (NEGATIVE); KETONE, URINE AUTO NEGATIVE (NEGATIVE); LEUKOCYTE ESTERASE, URINE AUTO 2+ (NEGATIVE); NITRITE, URINE AUTO NEGATIVE (NEGATIVE); PROTEIN, URINE AUTO NEGATIVE (NEGATIVE); RBC, URINE AUTO 3 /HPF (0-3); SPECIFIC GRAVITY URINE AUTO 1.005 (1.002-1.035); SQUAMOUS EPITHELIAL CELL UR AU 5 /HPF (0-6); UROBILINOGEN, URINE AUTO 0.2 mg/dL (0.0-2.0); WBC, URINE AUTO 21 /HPF (0-3)
== END ==
LOC: M LAB REF 18:40
DX: N39.0 Urinary tract infection, site not specified (principal)

== ENCOUNTER → 2018-06-30 | Outpatient (CLI) | payer OTHER | LOC: M PAIN 11:00 | DX: M51.26 Other intervertebral disc displacement, lumbar region (principal); R10.84 Generalized abdominal pain; M54.16 Radiculopathy, lumbar region; I10 Essential (primary) hypertension; F32.9 Major depressive disorder, single episode, unspecified; F43.10 Post-traumatic stress disorder, unspecified; F41.9 Anxiety disorder, unspecified; Z87.440 Personal history of urinary (tract) infections; Z87.442 Personal history of urinary calculi; Z91.5 Personal history of self-harm; Z79.891 Long term (current) use of opiate analgesic; Z79.899 Other long term (current) drug therapy; Z88.2 Allergy status to sulfonamides; Z88.1 Allergy status to other antibiotic agents; Z88.5 Allergy status to narcotic agent; Z88.6 Allergy status to analgesic agent; Z88.8 Allergy status to other drugs, medicaments and biological substances | CPT/HCPCS: G0463 ==

== ENCOUNTER → 2018-07-19 | Outpatient (REF) | LOC: M SMT 12:13 | DX: Z02.71 Encounter for disability determination (principal) ==

== ENCOUNTER → 2018-07-21 | Outpatient (REF) | payer OTHER ==
[2018-07-21 14:26] LABS: APPEARANCE, URINE HAZY (CLEAR); BACTERIA, URINE AUTO 1+ (NEGATIVE); BILIRUBIN, URINE AUTO NEGATIVE (NEGATIVE); BLOOD, URINE BLOOD NEGATIVE (NEGATIVE); COLOR, URINE YELLOW (YELLOW); GLUCOSE, URINE (UA) AUTO NEGATIVE (NEGATIVE); KETONE, URINE AUTO NEGATIVE (NEGATIVE); LEUKOCYTE ESTERASE, URINE AUTO 1+ (NEGATIVE); MUCUS, URINE SMALL (NEGATIVE); NITRITE, URINE AUTO NEGATIVE (NEGATIVE); PROTEIN, URINE AUTO NEGATIVE (NEGATIVE); RBC, URINE AUTO 5 /HPF (0-3); SPECIFIC GRAVITY URINE AUTO 1.013 (1.002-1.035); SQUAMOUS EPITHELIAL CELL UR AU 7 /HPF (0-6); UROBILINOGEN, URINE AUTO 0.2 mg/dL (0.0-2.0); WBC, URINE AUTO 1 /HPF (0-3); YEAST LIKE CELL URINE AUTO SMALL
== END ==
LOC: M SFHCPLAZ 13:15
DX: N39.0 Urinary tract infection, site not specified (principal)
CPT/HCPCS: 81001

== ENCOUNTER → 2018-10-19 | Outpatient (CLI) | payer OTHER ==
[~2018-10-19] MED LIST changes: +/HYDR10T PO; +/LORA10TA PO; +/MOM400 PO; +/ONDA4TA PO; +/TAMS4CA PO; +ACET50TA PO; +ALLERGY EYE DROPS OU; +ALLO100T OR; +ARIP5TA PO; +ARTHROTEC PO; +ASCO500T PO; +AZEL0.1S3; +Advil PM PO; +BACL10TA2 OR; +BENA25CA PO; +BENA25CA4 PO; +CALCTAB54 PO; +CEFD1CAP8 PO; +CEPH500C PO; +CETI10TA PO; +CLAR5CHW PO; +CLON0.1T PO; +COLA100C5 PO; +DETR1TAB5 PO; +DIPH25CA PO; +DITR5TAB PO; +DIVA500T9 PO; +DOCU10CA PO; +DOCU10ELUD PO; +DOXE25CA PO; +DRIS50003 PO; +EFFE37.5 PO; +FERR150C PO; +FERR1TAB8 PO; +FERR325T3 PO; +FLOM0.4C39 PO; +FLOVENT INH; +FOSFOMYCIN; +GABA-843 PO; +HYDR-3363 PO; +HYDR25TA6 OR; +HYDR50TA8 PO; +IRON27TA PO; +KEFL500C17 PO; +KETO-28 PO; +KETO10TAB PO; +LASI20TA3 PO; +LEVO750T PO; +LISI10TA4 OR; -MAALOX 30 ML SUSP *UDC PO; -MOM 30ML SUSPENSION UDC PO; +MORP-39 PO; +MULTIVIT PO; +NEUR100C PO; +NEUR300C PO; +NITR100C39 PO; +NUCY200T PO; +NUCY75TA PO; +OPTIVAR OU; +OXYC-208 PO; +OXYC-517 PO; +PERC10TA26 PO; +PERC5TAB8 OR; +PERC5TAB8 PO; +PERC7.5T12 PO; +POTASSIUM CITRATE1 PO; +PROB1TAB PO; +PROG200C PO; +PROM25SU5 PO; +PROM25TA PO; +PROM25TA3 PO; +RIZA10TA2 PO; +SLOW45TA PO; +SUDA30TA PO; +TIZA-208 PO; +TIZA4CAP PO; +TRAM50TA2 OR; +TRAM50TA2 PO; +TRUBCAP PO; +ULTR50TA PO; +VALI5TAB PO; +VENL37.5 OR; +VIT D 4000 PO; +VITA1CHW8 PO; +VITA1DRO SL; +VITA200038 PO; +VITA250L PO; +VITA500C3 PO; +VITA500L3 PO; +VITA500T53 PO; +VITMTA PO; +ZANA4TAB PO; +ZOFR4SOL PO; +ZOFR4TAB16 PO; +ZYLO300T6 PO; +ZYRT10CA5 PO; +[UNRECOGNIZED DRUG - CODE] AU; +[UNRECOGNIZED DRUG - CODE] OU; +[UNRECOGNIZED DRUG - CODE] PO; +[UNRECOGNIZED DRUG - OTHER] AD; +[UNRECOGNIZED DRUG - OTHER] PO; +morphine IR PO
--- NOTE | 2018-11-03 01:38 | ECWPNPC ---
PATIENT NAME: KELLY GRAHAM : 1970 GENDER: FEMALE VISIT DATE: 10/19/2018 DISCHARGE DATE: 10/19/18 1001 VISIT LOCKED DATE TIME: PHYSICIAN: MAMADOU BOWEN RESOURCE: MAMADOU BOWEN REASON FOR APPOINTMENT 1. ABD/BACK PAIN, SW PATIENT HISTORY OF PRESENT ILLNESS HISTORY OF PRESENT ILLNESS: HERE FOR ROUTINE F/U OF CHRONIC LOW BACK PAIN WITH HX OF MULTIPLE KIDNEY SURGERIES.CURRENTLY USING TRAMADOL 1 TAB IN AM AND 1 PM AND PERCOCET 10/325 AT HS AND IN MIDDLE OF NIGHT.OVERALL FEELS HER MEDICATION IS NOT HELPING ANYMORE.HAD A LONG DISCUSSION REGARDING HER MENTAL HEALTH AND PAIN MANGEMENT.SHE IS FOLLOWING [facility] MENTAL HEALTH AND WILL BE DISCUSSING ANY MED CHANGES WITH PSYCHIATRY.RATING PAIN VAS 8/10. PAIN THE PATIENT DESCRIBES THE PAIN... FALL RISK SCREENING: SCREENING : NO FALLS IN THE PAST YEAR. CURRENT MEDICATIONS TAKING VITAMIN B-12 250 MCG TABLET 1 TABLET ORALLY ONCE A DAY TAKING VITAMIN D (ERGOCALCIFEROL) [id number] UNIT CAPSULE 1 CAPSULE ORALLY TWICE A WEEK TAKING MULTIPLE VITAMIN 2 TABLETS TABLET ORALLY DAILY TAKING BENADRYL 25 MG CAPSULE 2 CAPSULES ORALLY BEFORE BEDTIME TAKING AZELASTINE HCL 0.05 % SOLUTION 1 DROP INTO AFFECTED EYE OPHTHALMIC BID NEEDED TAKING IRON 325 (65 FE) MG TABLET 1 TABLET ORALLY BID TAKING PHENAZOPYRIDINE HCL 200 MG TABLET 1 TABLET AFTER MEALS ORALLY THREE TIMES DAILY NEEDED TAKING HYDROXYZINE HCL 25 MG TABLET 1 TABLET NEEDED ORALLY EVERY 4-6 HOURS NEEDED TAKING POTASSIUM CITRATE ER 15 MEQ (1620 MG) TABLET EXTENDED RELEASE 1 TABLET WITH MEALS ORALLY DAILY TAKING DOXEPIN HCL 100 MG CAPSULE 1 CAPSULE AT BEDTIME ORALLY DAILY TAKING TYLENOL 325 MG TABLET 1 TABLET NEEDED ORALLY EVERY 4 HRS TAKING AMBIEN 10 MG TABLET 1 TABLET AT BEDTIME NEEDED ORALLY ONCE A DAY TAKING PROZAC 40 MG CAPSULE 1 CAPSULE ORALLY ONCE A DAY TAKING ABILIFY 5 MG TABLET 1 TABLET ORALLY ONCE A DAY TAKING DOXEPIN HCL 10 MG CAPSULE 1 CAPSULE AT BEDTIME ORALLY ONCE A DAY TAKING PROBIOTIC CAPSULE ORALLY DAILY TAKING OXYBUTYNIN CHLORIDE ER 10 MG TABLET EXTENDED RELEASE 24 HOUR 1 TABLET ORALLY ONCE A DAY TAKING RIZATRIPTAN BENZOATE 10 MG TABLET 1 TAB ORALLY AT ONSET OF MIGRAINE FOR TOTAL OF 9 MIGRAINE EVENTS PER MONTH TAKING TRAMADOL HCL 50 MG TABLET 1 -2 TABLETS ORALLY Q 6 HRS PRN PAIN CHRONIC PAIN MDD=2 TAKING GABAPENTIN 300 MG CAPSULE 1 CAP ORALLY 1 IN A.M., 1 IN P.M AND 2 AT BEDTIME TAKING CARISOPRODOL 350 MG TABLET 1 TABLET NEEDED ORALLY BEFORE BEDTIME TAKING PERCOCET 10-325 MG TABLET 1 TABLET ORALLY NEEDED EVERY 12 HOURS MDD 2 TAKING METHENAMINE-SODIUM SALICYLATE 1 GRAM ORALLY BID TAKING COLACE 100 MG CAPSULE 1 CAPSULE NEEDED ORALLY DAILY PRN NOT-TAKING ZYRTEC ALLERGY 10 MG TABLET 1 TABLET ORALLY ONCE A DAY NEEDED NOT-TAKING ESTRADIOL 10 MG PELLET ONE APPLICATION INTRAVAGINALLY ONCE WEEKLY NOT-TAKING KEFLEX 500 MG CAPSULE 1 CAPSULE ORALLY THREE TIMES A DAY MEDICATION LIST REVIEWED AND RECONCILED WITH THE PATIENT PAST MEDICAL HISTORY KIDNEY STONES HYPERTENSION 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 RECURRENT UTI DEPRESSION PTSD ANXIETY ALLERGIES BACTRIM: RASH: ALLERGY VICODIN: DYSPNEA: ALLERGY DILAUDID: NAUSEA/VOMITING: SIDE EFFECTS LEVAQUIN: NAUSEA/VOMITING: SIDE EFFECTS IV DYE: HIVES: ALLERGY GREEN DYE IN GEL CAPS: HIVES: ALLERGY EXCEDRIN MIGRAINE: HIVES: ALLERGY MACROBID: HIVES: ALLERGY SURGICAL HISTORY LITHOTRIPSY W/STENT R SIDE 12/1996 10/1998 LITHOTRIPSY W/STENT R SIDE 11/1998 GALL BLADDER REMOVED 12/1998 LITHOTRIPSY W/STENT R SIDE 09/2003 LITHOTRIPSY W/STENT R SIDE 03/2006 LITHOTRIPSY W/STENT LEFT SIDE 05/2006 LITHOTRIPSY W/STENT L SIDE 05/2009 GASTRIC BYPASS 03/2012 LEFT - KIDNEY AUTOTRANSPLANT 11/09/2012 CYSTOSCOPY, RETROGRADE PYELOGRAM & RIGHT URETERAL STENT PLACEMENT 12/23/2012 CYSTOSCOPY, RIGHT URETEROSCOPY, BASKET EXTRACTION OF STONES, RIGHT DOUBLE J STENT EXCHANGE 02/02/2013 RIGHT KIDNEY AUTOTRANSPLANT 2014 FAMILY HISTORY FATHER: ALIVE, DIAGNOSED WITH HYPERTENSION, OTHER MOTHER: 61 YRS, DIAGNOSED WITH HYPERTENSION, CANCER 1 SON(S) - HEALTHY. FATHER-HYPERLIPIDEMIAMOTHER FROM [place]. SOCIAL HISTORY GENERAL: TOBACCO USE ARE YOU A: NONSMOKER . ALCOHOL SCREENING DID YOU HAVE A DRINK CONTAINING ALCOHOL IN THE PAST YEAR?NO POINTS0 INTERPRETATIONNEGATIVE RECREATIONAL DRUG USE DRUG USE?NO CAFFEINE CAFFEINE USE?YES HOW OFTEN AND HOW MUCH? 1 CUP COFFEE/DAY SEXUAL HX HAD SEX IN THE LAST 12 MONTHS (VAGINAL, ORAL, OR ANAL)?YES WITHMEN ONLY LMP:10/23/2017 HIV / HEP-C SCREENING HIV TEST OFFERED TO PATIENT:NO PREVIOUSLY DONE HEP-C TEST OFFERED TO PATIENT:NO MANDAEN [id number] EPISCOPALIAN LANGUAGE LANGUAGES SPOKEN:ITALIAN EDUCATION LEVEL OF EDUCATION:FINISHED COLLEGE LEARNING BARRIERS / SPECIAL NEEDS BARRIERS TO LEARNING?NO HEARING IMPAIRED?NO VISION IMPAIRED?YES :CORRECTIVE LENSES COGNITIVELY IMPAIRED?NO READINESS TO LEARN?YES LEARNING PREFERENCES?NO LEARNING CAPABILITIES PRESENT?YES EMOTIONAL BARRIERS?NO SPECIAL DEVICES?YES :[employer] [facility] DIRECT[employer] SCHOOL NEEDED?NO DOMESTIC VIOLENCE DO YOU FEEL SAFE IN YOUR ENVIRONMENT?YES OCCUPATION: TEACHER . DIET: REGULAR. EXERCISE: NONE. MARITAL STATUS: SINGLE. OTHERS AT HOME: BOYFRIEND. NEW PATIENT PAIN DIARY TODAY'S VISITNOTES PAIN CLINIC PFS, CLERGY, PUBLIC HEALTH REFERRALS PFS REFERRAL NEEDED?NO CLERGY REFERRAL NEEDED?NO PUBLIC HEALTH REFERRAL NEEDED?NO WAS THE PROVIDER NOTIFIED OF ANY PERTINENT INFO? N/A HAS THE PATIENT BEEN EDUCATED REGARDING HIS/HER PLAN OF CARE?YES HAS THE PATIENT BEEN EDUCATED REGARDING PAIN, THE RISK FOR PAIN, THE IMPORTANCE OF EFFECTIVE PAIN MANAGEMENT, AND THE PAIN ASSESSMENT PROCESS?YES ADVANCE DIRECTIVE ADVANCE DIRECTIVE DISCUSSED WITH PATIENT:YES STATES SHE HAS HCP-FATHER JEANNA GRAHAM--[phone] 06/14/18 1430 REVIEWED WITH PTNathaly DE LA ROSA WITH PT 06/30/18 1153 BV. HOSPITALIZATION/MAJOR DIAGNOSTIC PROCEDURE 1998 GALL BLADDER REMOVED 1998 SEPTIC INFECTION 2007 PYELONEPHRITIS, UROSEPSIS, OBSTRUCTIVE NEPHROLITHIASIS 12/22/2012 REVIEW OF SYSTEMS REVIEWED BY: PROVIDER: MAMADOU MONZON . CONSTITUTIONAL: ANY CHANGE IN YOUR MEDICAL CONDITION? NO . CHILLS NO . FEVER NO . INFECTION: DO YOU HAVE NEW INFECTIONS? NO . DO YOU HAVE HISTORY OF MRSA? NO . MUSCULOSKELETAL: ANY NEW PATTERNS OF PAIN OR NUMBNESS? NO . GASTROENTEROLOGY: ANY NEW CHANGE IN BOWEL CONTROL? NO . GENITOURINARY: ANY NEW CHANGE IN BLADDER CONTROL? YES, URGENCY X 2 WEEKS. 24 HOUR URINE RECENTLY DONE . IS THERE A CHANCE YOU COULD BE ? NO . HEMATOLOGY/LYMPH: DO YOU TAKE ANY BLOOD THINNERS? (FOR EXAMPLE- COUMADIN, PLAVIX, AGGRENOX, PLATEL, PRADAXA, OR XARELTO) NO . WHEN WAS YOUR LAST DOSE? DATE: TIME: . NEUROLOGY: HAVE YOU FALLEN IN THE PAST 12 MONTHS? YES, FELL 2 WEEKS AGO FROM LOSS OF BALANCE, PT DENIES SEEKING TX FOR INJURIES . ANY NEW EXTREMITY NUMBNESS OR WEAKNESS? NO . CARDIOLOGY: DO YOU HAVE A PACEMAKER OR DEFIBRILLATOR? NO . RESPIRATORY: HAVE YOU BEEN SICK IN THE PAST WEEK? NO . FEVER NO . FLU LIKE SYMPTOMS? NO . COUGH NO . INTEGUMENTARY: DO YOU HAVE ANY RASHES OR OPEN SORES? NO . ALLERGIC/IMMUNO: ARE YOU ALLERGIC TO IV DYE? YES . ANY NEW ALLERGIES? NO . PSYCHIATRIC: DO YOU HAVE THOUGHTS OF HURTING YOURSELF OR SOMEONE ELSE? YES, SEEING PSYCHIATRIST FOR THIS . ARE YOU ABUSED, NEGLECTED, OR IN AN UNSAFE ENVIRONMENT? NO . ENDOCRINOLOGY: ARE YOU DIABETIC? NO . OTHER: DO YOU NEED ANY PRESCRIPTIONS? YES, RIZATRIPTAN, TRAMADOL . IF YES, PLEASE LIST: ____ . ANY NEW PROBLEMS WITH YOUR MEDICATIONS? NO . WHEN DID YOU LAST EAT? ____ . WHEN DID YOU LAST DRINK? ____ . WHAT DID YOU LAST DRINK? ____ . NAME OF PERSON DRIVING YOU HOME? ____ . DO YOU HAVE ANY OTHER QUESTIONS OR CONCERNS NO . VITAL SIGNS WT 251.4 LBS, HT 66", BMI 40.57 INDEX, BP 143/73 MM HG, HR 81 /MIN, RR 16 /MIN, TEMP 97.6 F, OXYGEN SAT % 95%, NA INITIALS SC 09:10, REVIEWED BY: PACHECO. EXAMINATION GENERAL EXAMINATION: GENERAL APPEARANCE:AWAKE,ALERT ,PLEAASANT . PSYCHAFFECT NORMAL . LUNGS:LUNG FAGAN ARE CLEAR TO AUSCULTATION BILATERALLY. GOOD MOVEMENT OF AIR . HEART:S1, S2 IN A REGULAR RATE AND RHYTHM. NO SIGNIFICANT MURMURS, RUBS OR GALLOPS NOTED . ASSESSMENTS LUMBAR DISC DISPLACEMENT WITHOUT MYELOPATHY - M51.26 (PRIMARY) GENERALIZED ABDOMINAL PAIN - R10.84 TREATMENT LUMBAR DISC DISPLACEMENT WITHOUT MYELOPATHY REFILL RIZATRIPTAN BENZOATE TABLET, 10 MG, 1 TAB, ORALLY, AT ONSET OF MIGRAINE FOR TOTAL OF 9 MIGRAINE EVENTS PER MONTH, 30 DAY(S), 9, REFILLS 3 STOP TRAMADOL HCL TABLET, 50 MG, 1 -2 TABLETS, ORALLY, Q 6 HRS PRN PAIN CHRONIC PAIN MDD=2 CONTINUE GABAPENTIN CAPSULE, 300 MG, 1 CAP, ORALLY, 1 IN A.M., 1 IN P.M AND 2 AT BEDTIME CONTINUE CARISOPRODOL TABLET, 350 MG, 1 TABLET NEEDED, ORALLY, BEFORE BEDTIME REFILL PERCOCET TABLET, 10-325 MG, 1 TABLET, ORALLY, NEEDED EVERY 12 HOURS MDD 2, 30 DAY(S), 60, REFILLS 0 NOTES: ISTOP REGISTRY REVIEWED AND DEMONSTRATES COMPLLIANCE. (REF # [id number] ) BRINGS IN MEDICATIONS WHICH IS APPROPRIATE FOR WHAT WAS DISPENSED. RECENT URINE TOXICOLOGY REVIEWED. NO UNAUTHORIZED MEDICATIONS. NO ILLICIT SUBSTANCES AND PRESCRIBED MEDICATIONS WERE PRESENT. URINE TOX TODAY, RISKS AND BENEFITS OF NARCOTIC/OPIOD MEDICATIONS WERE REVIEWED WITH PATIENT - THIS INCLUDES BUT IS NOT LIMITED TO RISK OF DEPENDANCE/DEVELOPMENT OF ADDICTION, MOOD DISTURBANCE AND DEPRESSION, OSTEOPOROSIS, HORMONAL AND LABIDAL CHANGES, RESPIRATORY DEPRESSION AND . PATIENT IS ADVISED NOT TO DRIVE OR DRINK ALCOHOL WHILE ON THESE [facility]ICATIONSS[facility] NARCOTIC AGREEMENT WAS REVIEWED UPDATEDAND SIGNED TODAY BY THE PATIENT. SEE ATTACHED DOCUMENT FOR FULL DETAILS; SPECIFIC ISSUES WERE REVIEWED: 1) KEEP PAIN MEDS IN THEIR ORIGINAL BOTTLES AND ANY WEEKLY PLANNERS ARE TO BE BROUGHT TO THE PAIN CENTER AT EVERY VISIT. 2) THE PATIENT IS NOT TO INCREASE DOSING OR TIMING OF THEIR PAIN MEDICATION WITHOUT SPECIFIC DIRECTION OF THEIR PAIN CENTERPROVIDER (NOT ER OR OTHER PROVIDERS). 3) ALL PAIN MEDS ARE TO BE KEPT SECURED, IN A LOCKED BOX. 4) NO PAIN MEDS ARE TO BE SHARED WITH ANY OTHER PERSON FOR ANY REASON. 5) NO PAIN MEDS MAY BE TAKEN FROM ANY FRIENDS OR RELATIVES FOR ANY REASON 6) NO MEDS OR SUBSTANCES WHICH ARE NOT LEGAL ARE TO BE USED- NO MARIJUANA, NO COCAINE, AMPHETAMINES, HEROIN, OR OTHERS ARE EVER TO BE USED. 7)URINE TESTING IS DONE TO ACCOUNT FOR MEDS AND SUBSTANCES BEING TAKEN AND WILL BE DONE RANDOMLY., PLEASE ASK DR WARREN IF SHE FEELS THAT YOU ARE CLINICALLY STABLE AT THIS POINT AND THAT I CAN INCREASE PERCOCET 10/325 FROM 2 PER DAY TO 4 TAB PER DAY.I HAVE DISCONTINUED TRAMADOL IT IS INEFFECTIVE.SHE DOESNT TOLERATE OTHER ALTERNATIVES TO INCLUDE PATCH FORMS OF CHRONIC PAIN MEDICATION IE BUTRANS PATCH.PLEASE SEND RECOMMENDATIONS IN WRITING. PROCEDURE CODES FA211 ESTABILISHED PATIENT [facility] CHARGE DISPOSITION & COMMUNICATION FOLLOW UP 6 WEEKS ELECTRONICALLY SIGNED BY NICOLÁS BORDEN ON 11/02/2018 AT 04:54 PM EDT DISCLAIMER : THIS IS A VISIT SUMMARY EXTRACTED FROM THE [employer] CHART. IT IS NOT A COPY OF THE [employer] PROGRESS NOTE. JEANETTE
== END ==
LOC: M PAIN 09:00
PROVIDERS: ATTEND Nurse Practitioner Family
DX: M51.26 Other intervertebral disc displacement, lumbar region (principal); G89.29 Other chronic pain; R10.84 Generalized abdominal pain; I10 Essential (primary) hypertension; E66.01 Morbid (severe) obesity due to excess calories; Z68.41 Body mass index [BMI] 40.0-44.9, adult; Z79.899 Other long term (current) drug therapy; Z88.1 Allergy status to other antibiotic agents; Z88.5 Allergy status to narcotic agent; Z88.8 Allergy status to other drugs, medicaments and biological substances; Z91.041 Radiographic dye allergy status; Z91.02 Food additives allergy status; Z86.59 Personal history of other mental and behavioral disorders; Z98.84 Bariatric surgery status

== ENCOUNTER → 2018-12-07 | Outpatient (CLI) | payer OTHER ==
[~2018-12-07] MED LIST changes: -/LORA10TA PO; -/MOM400 PO; -/ONDA4TA PO; -/TAMS4CA PO; -ACET50TA PO; +ARIP1TAB6 PO; -ARIP5TA PO; -DOCU10ELUD PO; +DOCU5LIQ PO; +LORA-385 PO; +MAPA500T17 PO; +MILK10SU PO; -NUCY200T PO; +ONDA-1 PO; +PROM-190 PO; -PROM25TA PO; +TAPE200T PO; -TIZA-208 PO; +TIZA4TAB4 PO; +VITA500T17 PO; -VITA500T53 PO
--- NOTE | 2018-12-09 02:00 | ECWPNPC ---
PATIENT NAME: KELLY GRAHAM : 1970 GENDER: FEMALE VISIT DATE: 12/07/2018 DISCHARGE DATE: 12/07/18 1450 VISIT LOCKED DATE TIME: PHYSICIAN: LATISHA KENDALL RESOURCE: LATISHA KENDALL REASON FOR APPOINTMENT 1. ABD/BACK PAIN, HISTORY OF PRESENT ILLNESS HISTORY OF PRESENT ILLNESS: PAIN THE PATIENT DESCRIBES THE PAINDURING THE LAST MONTH SEVERITY - PAIN SCORE OF7/10 48 YR OLD FEMALE HERE TO F/U FOR PAIN MANAGEMENT OF CHRONIC LOWER BACK AND ABD PAIN. SHE SAYS SHE IS AT HER " BASELINE" OF 710. PATIENT SAYS SHE HAS TO SEE HER PSYCHAITRIST NEXT WEEK, TO GET CLEARANCE SO THAT PM CAN INCREASE HER PERCOCET. FALL RISK SCREENING: SCREENING :NO FALLS REPORTED IN THE LAST YEAR CURRENT MEDICATIONS TAKING VITAMIN B-12 250 MCG TABLET 1 TABLET ORALLY ONCE A DAY TAKING VITAMIN D (ERGOCALCIFEROL) 00174 UNIT CAPSULE 1 CAPSULE ORALLY TWICE A WEEK TAKING MULTIPLE VITAMIN 2 TABLETS TABLET ORALLY DAILY TAKING BENADRYL 25 MG CAPSULE 2 CAPSULES ORALLY BEFORE BEDTIME TAKING AZELASTINE HCL 0.05 % SOLUTION 1 DROP INTO AFFECTED EYE OPHTHALMIC BID NEEDED TAKING IRON 325 (65 FE) MG TABLET 1 TABLET ORALLY BID TAKING PHENAZOPYRIDINE HCL 200 MG TABLET 1 TABLET AFTER MEALS ORALLY THREE TIMES DAILY NEEDED TAKING POTASSIUM CITRATE ER 15 MEQ (1620 MG) TABLET EXTENDED RELEASE 1 TABLET WITH MEALS ORALLY DAILY TAKING DOXEPIN HCL 100 MG CAPSULE 1 CAPSULE AT BEDTIME ORALLY DAILY TAKING TYLENOL 325 MG TABLET 1 TABLET NEEDED ORALLY EVERY 4 HRS TAKING AMBIEN 10 MG TABLET 1 TABLET AT BEDTIME NEEDED ORALLY ONCE A DAY TAKING PROZAC 40 MG CAPSULE 1 CAPSULE ORALLY ONCE A DAY TAKING ABILIFY 5 MG TABLET 1 TABLET ORALLY ONCE A DAY TAKING PROBIOTIC CAPSULE ORALLY DAILY TAKING OXYBUTYNIN CHLORIDE ER 10 MG TABLET EXTENDED RELEASE 24 HOUR 1 TABLET ORALLY ONCE A DAY TAKING METHENAMINE-SODIUM SALICYLATE 1 GRAM ORALLY BID TAKING COLACE 100 MG CAPSULE 1 CAPSULE NEEDED ORALLY DAILY PRN TAKING RIZATRIPTAN BENZOATE 10 MG TABLET 1 TAB ORALLY AT ONSET OF MIGRAINE FOR TOTAL OF 9 MIGRAINE EVENTS PER MONTH TAKING GABAPENTIN 300 MG CAPSULE 1 CAP ORALLY 1 IN A.M., 1 IN P.M AND 2 AT BEDTIME TAKING CARISOPRODOL 350 MG TABLET 1 TABLET NEEDED ORALLY BEFORE BEDTIME TAKING PERCOCET 10-325 MG TABLET 1 TABLET ORALLY NEEDED EVERY 12 HOURS MDD 2 NOT-TAKING ZYRTEC ALLERGY 10 MG TABLET 1 TABLET ORALLY ONCE A DAY NEEDED NOT-TAKING ESTRADIOL 10 MG PELLET ONE APPLICATION INTRAVAGINALLY ONCE WEEKLY NOT-TAKING KEFLEX 500 MG CAPSULE 1 CAPSULE ORALLY THREE TIMES A DAY DISCONTINUED HYDROXYZINE HCL 25 MG TABLET 1 TABLET NEEDED ORALLY EVERY 4-6 HOURS NEEDED DISCONTINUED DOXEPIN HCL 10 MG CAPSULE 1 CAPSULE AT BEDTIME ORALLY ONCE A DAY MEDICATION LIST REVIEWED AND RECONCILED WITH THE PATIENT PAST MEDICAL HISTORY KIDNEY STONES HYPERTENSION 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 RECURRENT UTI DEPRESSION PTSD ANXIETY ALLERGIES BACTRIM: RASH - ALLERGY VICODIN: DYSPNEA - ALLERGY DILAUDID: NAUSEA/VOMITING - SIDE EFFECTS LEVAQUIN: NAUSEA/VOMITING - SIDE EFFECTS IV DYE: HIVES - ALLERGY GREEN DYE IN GEL CAPS: HIVES - ALLERGY EXCEDRIN MIGRAINE: HIVES - ALLERGY MACROBID: HIVES - ALLERGY SURGICAL HISTORY LITHOTRIPSY W/STENT R SIDE 12/1996 10/1998 LITHOTRIPSY W/STENT R SIDE 11/1998 GALL BLADDER REMOVED 12/1998 LITHOTRIPSY W/STENT R SIDE 09/2003 LITHOTRIPSY W/STENT R SIDE 03/2006 LITHOTRIPSY W/STENT LEFT SIDE 05/2006 LITHOTRIPSY W/STENT L SIDE 05/2009 GASTRIC BYPASS 03/2012 LEFT - KIDNEY AUTOTRANSPLANT 11/09/2012 CYSTOSCOPY, RETROGRADE PYELOGRAM & RIGHT URETERAL STENT PLACEMENT 12/23/2012 CYSTOSCOPY, RIGHT URETEROSCOPY, BASKET EXTRACTION OF STONES, RIGHT DOUBLE J STENT EXCHANGE 02/02/2013 RIGHT KIDNEY AUTOTRANSPLANT 2014 FAMILY HISTORY FATHER: ALIVE, DIAGNOSED WITH HYPERTENSION, OTHER MOTHER: 61 YRS, HYPERTENSION, CANCER 1 SON(S) - HEALTHY. FATHER-HYPERLIPIDEMIA\\NMOTHER FROM [place]. SOCIAL HISTORY GENERAL: TOBACCO USE ARE YOU A: NONSMOKER . ALCOHOL SCREENING DID YOU HAVE A DRINK CONTAINING ALCOHOL IN THE PAST YEAR?NO POINTS0 INTERPRETATIONNEGATIVE RECREATIONAL DRUG USE DRUG USE?NO CAFFEINE CAFFEINE USE?YES HOW OFTEN AND HOW MUCH? 1 CUP COFFEE/DAY SEXUAL HX HAD SEX IN THE LAST 12 MONTHS (VAGINAL, ORAL, OR ANAL)?YES WITHMEN ONLY LMP:10/23/2017 HIV / HEP-C SCREENING HIV TEST OFFERED TO PATIENT:NO PREVIOUSLY DONE HEP-C TEST OFFERED TO PATIENT:NO TAOIST [id number] EPISCOPALIAN LANGUAGE LANGUAGES SPOKEN:YORUBA EDUCATION LEVEL OF EDUCATION:FINISHED COLLEGE LEARNING BARRIERS / SPECIAL NEEDS BARRIERS TO LEARNING?NO HEARING IMPAIRED?NO VISION IMPAIRED?YES :CORRECTIVE LENSES COGNITIVELY IMPAIRED?NO READINESS TO LEARN?YES LEARNING PREFERENCES?NO LEARNING CAPABILITIES PRESENT?YES EMOTIONAL BARRIERS?NO SPECIAL DEVICES?YES :CANE TIRE AND LUBE TECHNICIAN NEEDED?NO DOMESTIC VIOLENCE DO YOU FEEL SAFE IN YOUR ENVIRONMENT?YES OCCUPATION: TEACHER . DIET: REGULAR. EXERCISE: NONE. MARITAL STATUS: SINGLE. OTHERS AT HOME: BOYFRIEND. NEW PATIENT PAIN DIARY TODAY'S VISITNOTES PAIN CLINIC PFS, CLERGY, PUBLIC HEALTH REFERRALS PFS REFERRAL NEEDED?NO CLERGY REFERRAL NEEDED?NO PUBLIC HEALTH REFERRAL NEEDED?NO WAS THE PROVIDER NOTIFIED OF ANY PERTINENT INFO? N/A HAS THE PATIENT BEEN EDUCATED REGARDING HIS/HER PLAN OF CARE?YES HAS THE PATIENT BEEN EDUCATED REGARDING PAIN, THE RISK FOR PAIN, THE IMPORTANCE OF EFFECTIVE PAIN MANAGEMENT, AND THE PAIN ASSESSMENT PROCESS?YES ADVANCE DIRECTIVE ADVANCE DIRECTIVE DISCUSSED WITH PATIENT:YES STATES SHE HAS HCP-FATHER JEANNA GRAHAM--[phone] 06/14/18 1430 REVIEWED WITH PT. BRYAND WITH PT 06/30/18 1153 BV. HOSPITALIZATION/MAJOR DIAGNOSTIC PROCEDURE 1998 GALL BLADDER REMOVED 1998 SEPTIC INFECTION 2007 PYELONEPHRITIS, UROSEPSIS, OBSTRUCTIVE NEPHROLITHIASIS 12/22/2012 REVIEW OF SYSTEMS REVIEWED BY: PROVIDER: TUAN Andersen CONSTITUTIONAL: ANY CHANGE IN YOUR MEDICAL CONDITION? NO . CHILLS NO . FEVER NO . INFECTION: DO YOU HAVE NEW INFECTIONS? NO . DO YOU HAVE HISTORY OF MRSA? NO . MUSCULOSKELETAL: ANY NEW PATTERNS OF PAIN OR NUMBNESS? YES, PASSED KIDNEY STONE . GASTROENTEROLOGY: ANY NEW CHANGE IN BOWEL CONTROL? NO . GENITOURINARY: ANY NEW CHANGE IN BLADDER CONTROL? YES, PASSED KIDNEY STONE, OVERACTIVE BLADDER . IS THERE A CHANCE YOU COULD BE ? NO . HEMATOLOGY/LYMPH: DO YOU TAKE ANY BLOOD THINNERS? (FOR EXAMPLE- COUMADIN, PLAVIX, AGGRENOX, PLATEL, PRADAXA, OR XARELTO) NO . WHEN WAS YOUR LAST DOSE? DATE: TIME: . NEUROLOGY: HAVE YOU FALLEN IN THE PAST 12 MONTHS? YES, PRIOR TO LAST VISIT . ANY NEW EXTREMITY NUMBNESS OR WEAKNESS? NO . CARDIOLOGY: DO YOU HAVE A PACEMAKER OR DEFIBRILLATOR? NO . RESPIRATORY: HAVE YOU BEEN SICK IN THE PAST WEEK? YES, PASSED KIDNEY STONE . FEVER NO . FLU LIKE SYMPTOMS? NO . COUGH NO . INTEGUMENTARY: DO YOU HAVE ANY RASHES OR OPEN SORES? NO . ALLERGIC/IMMUNO: ARE YOU ALLERGIC TO IV DYE? YES . ANY NEW ALLERGIES? NO . PSYCHIATRIC: DO YOU HAVE THOUGHTS OF HURTING YOURSELF OR SOMEONE ELSE? NO . ARE YOU ABUSED, NEGLECTED, OR IN AN UNSAFE ENVIRONMENT? NO . ENDOCRINOLOGY: ARE YOU DIABETIC? NO . OTHER: DO YOU NEED ANY PRESCRIPTIONS? NO . IF YES, PLEASE LIST: ____ . ANY NEW PROBLEMS WITH YOUR MEDICATIONS? NO . WHEN DID YOU LAST EAT? ____ . WHEN DID YOU LAST DRINK? ____ . WHAT DID YOU LAST DRINK? ____ . NAME OF PERSON DRIVING YOU HOME? ____ . DO YOU HAVE ANY OTHER QUESTIONS OR CONCERNS NO . VITAL SIGNS WT 252.4 LBS, HT 66", BMI 40.73 INDEX, BP 131/62 MM HG, HR 81 /MIN, RR 16 /MIN, TEMP 98.8 F, OXYGEN SAT % 97%, NA INITIALS AW 1425, REVIEWED BY: EM. EXAMINATION GENERAL EXAMINATION: GENERAL APPEARANCE:NO ACUTE DISTRESS, WELL NOURISHED AND HYDRATED. PSYCHAPPROPRIATE MOOD AND AFFECT . HEART:NO MURMURS, REGULAR RATE AND RHYTHM. ABDOMEN: DEFERRED. ASSESSMENTS GENERALIZED ABDOMINAL PAIN - R10.84 (PRIMARY) NEURALGIA INVOLVING ABDOMEN - M79.2 TREATMENT GENERALIZED ABDOMINAL PAIN CLINICAL NOTES: CONTINUE WITH REGULAR MEDICATION.AWAITING NOTE FROM PSYCHIATRY TO INCREASE PERCOCET. PROCEDURE CODES FA211 ESTABILISHED PATIENT FORMERLY [facility] CHARGE DISPOSITION & COMMUNICATION FOLLOW UP 4 WEEKS ELECTRONICALLY SIGNED BY NICOLÁS LUU ON 12/08/2018 AT 09:22 AM EDT DISCLAIMER : THIS IS A VISIT SUMMARY EXTRACTED FROM THE [employer] CHART. IT IS NOT A COPY OF THE [employer] PROGRESS NOTE. JEANETTE
== END ==
LOC: M PAIN 13:45
PROVIDERS: ATTEND Nurse Practitioner Family
DX: R10.84 Generalized abdominal pain (principal); M79.2 Neuralgia and neuritis, unspecified; G89.29 Other chronic pain; I10 Essential (primary) hypertension; Z86.59 Personal history of other mental and behavioral disorders; Z98.84 Bariatric surgery status; Z88.1 Allergy status to other antibiotic agents; Z88.6 Allergy status to analgesic agent; Z91.041 Radiographic dye allergy status; Z91.048 Other nonmedicinal substance allergy status; E66.01 Morbid (severe) obesity due to excess calories; Z68.41 Body mass index [BMI] 40.0-44.9, adult; Z79.899 Other long term (current) drug therapy

== ENCOUNTER → 2019-01-03 | Outpatient (CLI) | payer OTHER ==
--- NOTE | 2019-01-20 04:03 | ECWPNPC ---
PATIENT NAME: KELLY GRAHAM : 1970 GENDER: FEMALE VISIT DATE: 01/03/2019 DISCHARGE DATE: 01/03/19 1228 VISIT LOCKED DATE TIME: PHYSICIAN: MAMADOU BOWEN RESOURCE: MAMADOU BOWEN DISCLAIMER : THIS IS A VISIT SUMMARY EXTRACTED FROM THE [facility] CHART. IT IS NOT A COPY OF THE [employer] PROGRESS NOTE. JEANETTE
== END ==
LOC: M PAIN 11:15
PROVIDERS: ATTEND Nurse Practitioner Family
DX: R10.84 Generalized abdominal pain (principal); M51.26 Other intervertebral disc displacement, lumbar region; M79.2 Neuralgia and neuritis, unspecified; G89.29 Other chronic pain; I10 Essential (primary) hypertension; Z86.59 Personal history of other mental and behavioral disorders; Z98.84 Bariatric surgery status; Z88.1 Allergy status to other antibiotic agents; Z88.5 Allergy status to narcotic agent; Z88.6 Allergy status to analgesic agent; Z88.8 Allergy status to other drugs, medicaments and biological substances; Z91.041 Radiographic dye allergy status; Z91.02 Food additives allergy status; E66.01 Morbid (severe) obesity due to excess calories; Z68.41 Body mass index [BMI] 40.0-44.9, adult; Z79.899 Other long term (current) drug therapy

== ENCOUNTER → 2019-01-17 | Outpatient (REF) | payer OTHER ==
[2019-01-17 19:58] LABS: BASO % 0.7 % (0.0-1.0); EOS # 0.1 10^3/uL (0.0-0.50); EOS % 1.8 % (0.0-3.0); HEMATOCRIT 42.9 % (36.0-47.0); HEMOGLOBIN 13.9 g/dl (12.0-15.5); LYMPH # 1.5 10^3/uL (1.5-4.5); LYMPH % 24.1 % (24.0-44.0); MEAN CORPUSCULAR HEMOGLOBIN 31.1 pg (27.0-33.0); MEAN CORPUSCULAR HGB CONC 32.4 g/dl (32.0-36.5); MONO # 0.4 10^3/uL (0.0-0.8); MONO % 6.8 % (0.0-5.0); NEUTROPHILS # 4.1 10^3/uL (1.8-7.7); NEUTROPHILS % 65.9 % (36.0-66.0); PLATELET COUNT, AUTOMATED 212 10^3/uL (150-450); RED BLOOD COUNT 4.47 10^6/uL (4.00-5.40); WHITE BLOOD COUNT 6.1 10^3/uL (4.0-10.0)
== END ==
LOC: M LAB REF 17:19
PROVIDERS: ATTEND Internal Medicine Nephrology
DX: N20.0 Calculus of kidney (principal); Q61.5 Medullary cystic kidney

== ENCOUNTER → 2019-05-22 | Outpatient (CLI) | payer OTHER ==
[~2019-05-22] MED LIST changes: +DIPH25CA32 PO; +PROG1CAP9 PO; -PROG200C PO
== END ==
LOC: M PAIN 09:00
PROVIDERS: ATTEND Nurse Practitioner Family
DX: R10.84 Generalized abdominal pain (principal); I10 Essential (primary) hypertension; F41.9 Anxiety disorder, unspecified; Z79.891 Long term (current) use of opiate analgesic; Z79.899 Other long term (current) drug therapy; Z88.1 Allergy status to other antibiotic agents; Z88.8 Allergy status to other drugs, medicaments and biological substances; Z91.041 Radiographic dye allergy status; Z87.448 Personal history of other diseases of urinary system; Z98.84 Bariatric surgery status

== ENCOUNTER → 2019-05-22 | Outpatient (CLI) | payer OTHER | LOC: M LAB 10:55 | PROVIDERS: ATTEND Nurse Practitioner Family | DX: R10.84 Generalized abdominal pain (principal) ==

== ENCOUNTER → 2019-12-05 | Outpatient (CLI) | payer OTHER | LOC: M LABSMTC 10:50 | PROVIDERS: ATTEND Family Medicine | DX: Z11.59 Encounter for screening for other viral diseases (principal); Z20.818 Contact with and (suspected) exposure to other bacterial communicable diseases ==

== ENCOUNTER → 2019-12-25 | Outpatient (CLI) | payer OTHER ==
--- NOTE | 2019-12-27 04:05 | ECWPNPC ---
PATIENT NAME: KELLY GRAHAM : 1970 GENDER: FEMALE VISIT DATE: 12/25/2019 DISCHARGE DATE: 12/25/19 1244 VISIT LOCKED DATE TIME: PHYSICIAN: MAMADOU BOWEN RESOURCE: MAMADOU BOWEN REASON FOR APPOINTMENT 1. MED MNGT - PAT COMPLETED HISTORY OF PRESENT ILLNESS HISTORY OF PRESENT ILLNESS: PATIENT IS AGREEABLE TO TELEMED VISIT VIA ZOOM DUE TO COVID 19 CRISIS. THIS IS A MEDICINE MANAGEMENT VISIT FOR CHRONIC LOW BACK PAIN AND BLADDER PAIN. RATING PAIN LEVEL AN 8/10 VAS. FINDS CURRENT CHRONIC PAIN MEDICATION SOMEWHAT HELPFUL AT REDUCING PAIN AND KEEPING HER FUNCTIONAL. DENIES ADVERSE EFFECTS OF MEDICATION. PAIN THE PATIENT DESCRIBES THE PAIN... FALL RISK SCREENING: SCREENING :NO FALLS REPORTED IN THE LAST YEAR CURRENT MEDICATIONS TAKING MULTIPLE VITAMIN 2 TABLETS TABLET ORALLY DAILY TAKING BENADRYL 25 MG CAPSULE 2 CAPSULES ORALLY BEFORE BEDTIME TAKING AZELASTINE HCL 0.05 % SOLUTION 1 DROP INTO AFFECTED EYE OPHTHALMIC BID NEEDED TAKING PHENAZOPYRIDINE HCL 200 MG TABLET 1 TABLET AFTER MEALS ORALLY THREE TIMES DAILY NEEDED, NOTES: AZO TAKING POTASSIUM CITRATE ER 15 MEQ (1620 MG) TABLET EXTENDED RELEASE 1 TABLET WITH MEALS ORALLY DAILY TAKING DOXEPIN HCL 100 MG CAPSULE 1 CAPSULE AT BEDTIME ORALLY DAILY TAKING TYLENOL 325 MG TABLET 1 TABLET NEEDED ORALLY EVERY 4 HRS TAKING PROBIOTIC CAPSULE ORALLY DAILY TAKING METHENAMINE-SODIUM SALICYLATE 1 GRAM ORALLY BID TAKING AMBIEN CR 12.5 MG TABLET EXTENDED RELEASE 1 TABLET AT BEDTIME NEEDED ORALLY ONCE A DAY TAKING ZYRTEC ALLERGY 10 MG TABLET 1 TABLET ORALLY ONCE A DAY NEEDED TAKING COLACE 100 MG CAPSULE 1 CAPSULE NEEDED ORALLY TID TAKING OXYBUTYNIN CHLORIDE ER 10 MG TABLET EXTENDED RELEASE 24 HOUR 1 TABLET ORALLY ONCE A DAY NEEDED TAKING PREMARIN 0.3 MG TABLET 1 TABLET ORALLY ONCE A DAY 0.5 GRAMS DAILY TAKING PROGESTERONE MICRONIZED 200 MG CAPSULE 1 CAPSULE AT BEDTIME ORALLY ONCE A DAY TAKING GABAPENTIN 300 MG CAPSULE 1 CAP ORALLY 1 IN A.M AND 2 AT BEDTIME TAKING RIZATRIPTAN BENZOATE 10 MG TABLET 1 TAB ORALLY AT ONSET OF MIGRAINE FOR TOTAL OF 9 MIGRAINE EVENTS PER MONTH TAKING PERCOCET 10-325 MG TABLET 1 TABLET ORALLY Q8H TID MDD3 TAKING PROZAC 40 MG CAPSULE 1 CAPSULE ORALLY ONCE A DAY NOT-TAKING VITAMIN B-12 1000 MCG TABLET 1 TABLET ORALLY ONCE A DAY NOT-TAKING VITAMIN D (ERGOCALCIFEROL) 33681 UNIT CAPSULE 1 CAPSULE ORALLY TWICE A WEEK NOT-TAKING IRON 325 (65 FE) MG TABLET 1 TABLET ORALLY DAILY NOT-TAKING ABILIFY 5 MG TABLET 1 TABLET ORALLY ONCE A DAY NOT-TAKING CYMBALTA 60 MG CAPSULE DELAYED RELEASE PARTICLES 1 CAPSULE ORALLY DAILY IN THE AM AND 40 MG IN THE PM NOT-TAKING CARISOPRODOL 350 MG TABLET 1 TABLET NEEDED ORALLY BEFORE BEDTIME NOT-TAKING ESTRADIOL 10 MG PELLET ONE APPLICATION INTRAVAGINALLY ONCE WEEKLY NOT-TAKING KEFLEX 500 MG CAPSULE 1 CAPSULE ORALLY THREE TIMES A DAY MEDICATION LIST REVIEWED AND RECONCILED WITH THE PATIENT PAST MEDICAL HISTORY KIDNEY STONES HYPERTENSION 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 RECURRENT UTI DEPRESSION PTSD ANXIETY HEREDITARY HEMOCHROMOTOSIS ALLERGIES BACTRIM: RASH - ALLERGY VICODIN: DYSPNEA - ALLERGY DILAUDID: NAUSEA/VOMITING - SIDE EFFECTS LEVAQUIN: NAUSEA/VOMITING - SIDE EFFECTS IV DYE: HIVES - ALLERGY GREEN DYE IN GEL CAPS: HIVES - ALLERGY EXCEDRIN MIGRAINE: HIVES - ALLERGY MACROBID: HIVES - ALLERGY SURGICAL HISTORY LITHOTRIPSY W/STENT R SIDE 12/1996 10/1998 LITHOTRIPSY W/STENT R SIDE 11/1998 GALL BLADDER REMOVED 12/1998 LITHOTRIPSY W/STENT R SIDE 09/2003 LITHOTRIPSY W/STENT R SIDE 03/2006 LITHOTRIPSY W/STENT LEFT SIDE 05/2006 LITHOTRIPSY W/STENT L SIDE 05/2009 GASTRIC BYPASS 03/2012 LEFT - KIDNEY AUTOTRANSPLANT 11/09/2012 CYSTOSCOPY, RETROGRADE PYELOGRAM & RIGHT URETERAL STENT PLACEMENT 12/23/2012 CYSTOSCOPY, RIGHT URETEROSCOPY, BASKET EXTRACTION OF STONES, RIGHT DOUBLE J STENT EXCHANGE 02/02/2013 RIGHT KIDNEY AUTOTRANSPLANT 2014 FAMILY HISTORY FATHER: ALIVE, DIAGNOSED WITH HYPERTENSION, OTHER SPECIFIED CONDITIONS INFLUENCING HEALTH STATUS MOTHER: 61 YRS, OTHER MALIGNANT NEOPLASM OF UNSPECIFIED SITE, HYPERTENSION 1 SON(S) - HEALTHY. FATHER-HYPERLIPIDEMIA\NMOTHER FROM [place]. SOCIAL HISTORY GENERAL: TOBACCO USE ARE YOU A: NONSMOKER. LATEX QUESTIONNAIRE LATEX ALLERGY : HAVE YOU EVER DEVELOPED ANY TYPE OF REACTION AFTER HANDLING LATEX PRODUCTS SUCH RUBBER GLOVES, CONDOMS, DIAPHRAGMS, BALLOONS, SOCKS, OR UNDERWEAR?NO LATEX ALLERGY : HAVE YOU EVER DEVELOPED ANY TYPE OF REACTION DURING OR AFTER DENTAL APPOINTMENT, VAGINAL/RECTAL EXAMINATION, SURGICAL PROCEDURE, OR ANY OTHER EXPOSURE?NO LATEX RISK : HAVE YOU EVER HAD ANY DIFFICULTY BREATHING OR HIVES AFTER EATING OR HANDLING ANY FRUITS, OR VEGETABLES; SUCH KIWI, BANANAS, STONE FRUITS, OR CHESTNUTSNO LATEX RISK : DO YOU HAVE A PREVIOUS PERSONAL HISTORY OF MORE THAN NINE SURGERIES, SPINA BIFIDA, OR REPEATED CATHERIZATIONS? NO LATEX RISK : ARE YOU FREQUENTLY EXPOSED TO LATEX PRODUCTS IN YOUR OCCUPATION?NO DATE ASKED : 12/25/2019 ALCOHOL SCREENING DID YOU HAVE A DRINK CONTAINING ALCOHOL IN THE PAST YEAR?NO POINTS0 INTERPRETATIONNEGATIVE RECREATIONAL DRUG USE DRUG USE?NO CAFFEINE CAFFEINE USE?YES HOW OFTEN AND HOW MUCH? 1 CUP COFFEE/DAY SEXUAL HX HAD SEX IN THE LAST 12 MONTHS (VAGINAL, ORAL, OR ANAL)?YES WITHMEN ONLY LMP:10/23/2017 HIV / HEP-C SCREENING HIV TEST OFFERED TO PATIENT:NO PREVIOUSLY DONE HEP-C TEST OFFERED TO PATIENT:NO ZOROASTRIAN [id number] MORMONISM LANGUAGE LANGUAGES SPOKEN:QATARI EDUCATION LEVEL OF EDUCATION:FINISHED COLLEGE LEARNING BARRIERS / SPECIAL NEEDS BARRIERS TO LEARNING?NO HEARING IMPAIRED?NO VISION IMPAIRED?YES COGNITIVELY IMPAIRED?NO :CORRECTIVE LENSES READINESS TO LEARN?YES LEARNING PREFERENCES?NO LEARNING CAPABILITIES PRESENT?YES EMOTIONAL BARRIERS?NO SPECIAL DEVICES?YES :CANE METAL SMELTER NEEDED?NO DOMESTIC VIOLENCE DO YOU FEEL SAFE IN YOUR ENVIRONMENT?YES OCCUPATION: TEACHER. DIET: REGULAR. EXERCISE: NONE. MARITAL STATUS: SINGLE. OTHERS AT HOME: BOYFRIEND. NEW PATIENT PAIN DIARY TODAY'S VISITNOTES 12/25/2019 PATIENT DESCRIBES PAIN :HAVE IT ALL THE TIME, SHARP, STABBING FROM 0-10, WHAT LEVEL IS YOUR PAIN TODAY?8 PAIN CLINIC PFS, CLERGY, PUBLIC HEALTH REFERRALS PFS REFERRAL NEEDED?NO CLERGY REFERRAL NEEDED?NO PUBLIC HEALTH REFERRAL NEEDED?NO WAS THE PROVIDER NOTIFIED OF ANY PERTINENT INFO? N/A HAS THE PATIENT BEEN EDUCATED REGARDING HIS/HER PLAN OF CARE?YES HAS THE PATIENT BEEN EDUCATED REGARDING PAIN, THE RISK FOR PAIN, THE IMPORTANCE OF EFFECTIVE PAIN MANAGEMENT, AND THE PAIN ASSESSMENT PROCESS?YES ADVANCE DIRECTIVE ADVANCE DIRECTIVE DISCUSSED WITH PATIENT:YES STATES SHE HAS HCP-FATHER JEANNA GRAHAM--[phone] HOSPITALIZATION/MAJOR DIAGNOSTIC PROCEDURE 1998 GALL BLADDER REMOVED 1998 SEPTIC INFECTION 2007 PYELONEPHRITIS, UROSEPSIS, OBSTRUCTIVE NEPHROLITHIASIS 12/22/2012 REVIEW OF SYSTEMS REVIEWED BY: PROVIDER: MAMADOU MONZON . CONSTITUTIONAL: ANY CHANGE IN YOUR MEDICAL CONDITION? YES, DIAGNOSED WITH HEMOCHROMATOSIS . CHILLS NO . FEVER NO . INFECTION: DO YOU HAVE NEW INFECTIONS? NO . DO YOU HAVE HISTORY OF MRSA? NO . MUSCULOSKELETAL: ANY NEW PATTERNS OF PAIN OR NUMBNESS? NO . GASTROENTEROLOGY: ANY NEW CHANGE IN BOWEL CONTROL? NO . GENITOURINARY: ANY NEW CHANGE IN BLADDER CONTROL? YES, URINARY FREQUENCY AND BLOOD IN HER URINE - STATES THIS IS CARLA LFOR HER . IS THERE A CHANCE YOU COULD BE ? NO . HEMATOLOGY/LYMPH: DO YOU TAKE ANY BLOOD THINNERS? (FOR EXAMPLE- COUMADIN, PLAVIX, AGGRENOX, PLATEL, PRADAXA, OR XARELTO) NO . WHEN WAS YOUR LAST DOSE? DATE: TIME: . NEUROLOGY: HAVE YOU FALLEN IN THE PAST 12 MONTHS? YES, STATES FALL DUE TO SLIPPING DOWN STAIRS - NO MAJOR INJURIES, NO ED VISIT . ANY NEW EXTREMITY NUMBNESS OR WEAKNESS? NO . CARDIOLOGY: DO YOU HAVE A PACEMAKER OR DEFIBRILLATOR? NO . RESPIRATORY: HAVE YOU BEEN SICK IN THE PAST WEEK? YES, TESTED FOR COVID-19, NEGATIVE . FEVER NO . FLU LIKE SYMPTOMS? YES . COUGH NO . INTEGUMENTARY: DO YOU HAVE ANY RASHES OR OPEN SORES? NO . ALLERGIC/IMMUNO: ARE YOU ALLERGIC TO IV DYE? YES . ANY NEW ALLERGIES? NO . PSYCHIATRIC: DO YOU HAVE THOUGHTS OF HURTING YOURSELF OR SOMEONE ELSE? NO . ARE YOU ABUSED, NEGLECTED, OR IN AN UNSAFE ENVIRONMENT? NO . ENDOCRINOLOGY: ARE YOU DIABETIC? NO . OTHER: DO YOU NEED ANY PRESCRIPTIONS? NO . IF YES, PLEASE LIST: ____ . ANY NEW PROBLEMS WITH YOUR MEDICATIONS? NO . WHEN DID YOU LAST EAT? ____ . WHEN DID YOU LAST DRINK? ____ . WHAT DID YOU LAST DRINK? ____ . NAME OF PERSON DRIVING YOU HOME? ____ . DO YOU HAVE ANY OTHER QUESTIONS OR CONCERNS NO . EXAMINATION GENERAL EXAMINATION: GENERALNO ACUTE DISTRESS, WELL NOURISHED AND HYDRATED. PSYCHAPPROPRIATE MOOD AND AFFECT . FACE:UNREMARKABLE. ASSESSMENTS GENERALIZED ABDOMINAL PAIN - R10.84 (PRIMARY) CHRONIC PRESCRIPTION OPIATE USE - Z79.899 TREATMENT GENERALIZED ABDOMINAL PAIN REFILL RIZATRIPTAN BENZOATE TABLET, 10 MG, 1 TAB, ORALLY, AT ONSET OF MIGRAINE FOR TOTAL OF 9 MIGRAINE EVENTS PER MONTH, 30 DAYS, 9, REFILLS 1 REFILL PERCOCET TABLET, 10-325 MG, 1 TABLET, ORALLY, Q8H TID MDD3, 30 DAY(S), 90, REFILLS 0 CONTINUE GABAPENTIN CAPSULE, 300 MG, 1 CAP, ORALLY, 1 IN A.M AND 2 AT BEDTIME NOTES: PATIENT IS ADVISED TODAY THAT WE NEED TO SEE HER IN THE CLINIC EVERY 3 MONTHS FOR MEDICINE MANAGEMENT AND NARCOTIC AGREEMENT . THERE HAVE BEEN SEVERAL CANCELLATIONS RECENTLY. FOLLOW-UP IN CLINIC IN 4-6 WEEKS. URINE TOXICOLOGY WILL BE OBTAINED. TOTAL TIME SPENT DURING TELEMED VISIT WAS APPROXIMATELY 12 MINUTES. , ISTOP REGISTRY REVIEWED AND DEMONSTRATES COMPLLIANCE. . OTHERS NOTES: NO VITALS OBTAINED DUE TO VIRTUAL VISIT. DISPOSITION & COMMUNICATION FOLLOW UP 6 WEEKS IN CLINIC (REASON: MED MGMNT-URINE TOX) ELECTRONICALLY SIGNED BY NICOLÁS BORDEN ON 12/26/2019 AT 01:06 PM EDT DISCLAIMER : THIS IS A VISIT SUMMARY EXTRACTED FROM THE [employer] CHART. IT IS NOT A COPY OF THE [employer] PROGRESS NOTE. MTDD
== END ==
LOC: M PAIN 11:30
PROVIDERS: ATTEND Nurse Practitioner Family
DX: R10.84 Generalized abdominal pain (principal); G89.29 Other chronic pain; I10 Essential (primary) hypertension; Z86.59 Personal history of other mental and behavioral disorders; Z98.84 Bariatric surgery status; Z88.1 Allergy status to other antibiotic agents; Z88.5 Allergy status to narcotic agent; Z88.8 Allergy status to other drugs, medicaments and biological substances; Z91.041 Radiographic dye allergy status; Z79.891 Long term (current) use of opiate analgesic; Z79.899 Other long term (current) drug therapy

== ENCOUNTER 2020-04-20 13:53 | Emergency (ER) | payer OTHER ==
[~2020-04-20] VITALS: Ht 167.6 cm; Wt 97.7 kg
[2020-04-20] MEDS ORDERED: DOXE50CA PO (14:16)
[2020-04-20] MEDS ORDERED: AZEL0.05 (14:16)
[2020-04-20] MEDS ORDERED: OXYB10TA23 PO (14:16)
[2020-04-20] MEDS ORDERED: PROG1CAP9 PO (14:16)
[2020-04-20] MEDS ORDERED: CETI10CH PO (14:16)
[2020-04-20] MEDS ORDERED: AMBI12.52 PO (14:16)
[2020-04-20] MEDS ORDERED: OXYC10TA3 PO ×2 (14:16→15:15)
[2020-04-20] MEDS ORDERED: METH-855 PO (14:16)
[2020-04-20] MEDS ORDERED: RIZA10TA2 PO (14:16)
[2020-04-20] MEDS ORDERED: DOCU-129 PO (14:16)
[2020-04-20] MEDS ORDERED: POTA4.25 PO (14:16)
[2020-04-20] MEDS ORDERED: FLUO40CA PO (14:16)
[2020-04-20] MEDS ORDERED: ESTR0.03 (14:16)
[2020-04-20] MEDS ORDERED: LOPE-25 PO (14:16)
[2020-04-20 15:04] LABS: HEMATOCRIT 42.3 % (36.0-47.0); MEAN CORPUSCULAR HEMOGLOBIN 31.5 pg (27.0-33.0); MEAN CORPUSCULAR HGB CONC 33.1 g/dl (32.0-36.5); MEAN CORPUSCULAR VOLUME 95.3 fl (80.0-96.0); PLATELET COUNT, AUTOMATED 223 10^3/uL (150-450); RED BLOOD COUNT 4.44 10^6/uL (4.00-5.40); WHITE BLOOD COUNT 4.9 10^3/uL (4.0-10.0)
[2020-04-20 15:18] LABS: BLOOD UREA NITROGEN 17 MG/DL (7-18); CALCIUM LEVEL 9.7 MG/DL (8.5-10.1); CARBON DIOXIDE LEVEL 26 MEQ/L (21-32); CHLORIDE LEVEL 107 MEQ/L (98-107); CREATININE FOR GFR 0.82 MG/DL (0.55-1.30); GLOMERULAR FILTRATION RATE > 60.0 (>58); GLUCOSE, FASTING 96 MG/DL (70-100); POTASSIUM SERUM 4.6 MEQ/L (3.5-5.1); SODIUM LEVEL 139 MEQ/L (136-145)
[2020-04-20 15:25] VITALS: BP 105/70
[2020-04-20] MEDS ORDERED: ZOFR4TAB16 PO (15:30)
== END 2020-04-20 15:31 | disposition home or self-care (01) ==
LOC: M ED 13:53
DX: G89.29 Other chronic pain (principal); R31.9 Hematuria, unspecified; N28.9 Disorder of kidney and ureter, unspecified; Z98.84 Bariatric surgery status; Z79.899 Other long term (current) drug therapy; Z88.1 Allergy status to other antibiotic agents; Z88.2 Allergy status to sulfonamides; Z88.5 Allergy status to narcotic agent; Z88.8 Allergy status to other drugs, medicaments and biological substances; Z91.041 Radiographic dye allergy status; Z91.048 Other nonmedicinal substance allergy status; J30.89 Other allergic rhinitis

== ENCOUNTER → 2020-08-21 | Outpatient (CLI) | payer OTHER ==
[~2020-08-21] MED LIST changes: +AMBI12.52 PO; +AZEL0.05; +CETI10CH PO; +DOCU-129 PO; +DOXE50CA PO; +ESTR0.03; +FLUO40CA PO; +LOPE-26 PO; +METH-855 PO; +OXYB10TA23 PO; +OXYC10TA3 PO; +POTA4.25 PO
--- NOTE | 2020-08-25 23:40 | ECWPNPC ---
PATIENT NAME: KELLY GRAHAM : 1970 GENDER: FEMALE VISIT DATE: 08/21/2020 DISCHARGE DATE: 08/21/20 1153 VISIT LOCKED DATE TIME: PHYSICIAN: MAMADOU BOWEN RESOURCE: MAMADOU BOWEN REASON FOR APPOINTMENT 1. KIDNEY/BLADDER HISTORY OF PRESENT ILLNESS PAIN CENTER INTAKE QUESTIONS: DO YOU HAVE A HISTORY OF MRSA? :NO DO YOU TAKE A BLOOD THINNERS? :NO DO YOU HAVE ANY BLEEDING DISORDERS? :NO ANY NEW NUMBNESS OR WEAKNESS IN YOUR LEGS OR ARMS? :NO ANY PACEMAKER,DEFIBRILLATOR, OR DORSAL COLUMN STIMULATOR? :NO DO YOU HAVE ANY RASHES OR OPEN SORES? :NO ARE YOU ALLERGIC TO IV DYE? :YES ARE YOU DIABETIC? :NO ANY NEW PROBLEMS WITH YOUR MEDICATIONS? :NO HAVE YOU RECEIVED A VACCINE IN THE PAST 30 DAYS? :NO DO YOU PLAN TO RECEIVE A VACCINE IN THE NEXT 21 DAYS? :NO DO YOU NEED ANY PRESCRIPTION? :NO DO YOU TAKE ANY IMMUNOSUPPRESSIVE MEDICATIONS? :NO IS THERE A CHANCE YOU COULD BE ? :NO ARE YOU BREAST FEEDING? :NO GENERAL: HERE FOR FOLLOW-UP OF CHRONIC KIDNEY REGION PAIN WITH HISTORY OF MULTIPLE SURGERIES. THIS IS A MEDICATION MANAGEMENT VISIT. PATIENT BRINGS HER MEDICATION WHICH IS APPROPRIATE FOR WHAT WAS DISPENSED AND DENIES ADVERSE SIDE EFFECTS OF MEDICATION. REPORTS INTERMITTENT SEVERE PAIN EPISODES WHERE SHE NEEDS TO BE SEEN IN THE EMERGENCY ROOM BUT HAS BEEN PRETTY STABLE IN THAT DEPARTMENT OVER THE PAST 4 MONTHS. ADVISED PATIENT THAT WE NEED TO SEE HER IN THE CLINIC AT LEAST EVERY 3 MONTHS WITH HER MEDICATIONS AND WITH TOXICOLOGY'S TO CONTINUE PRESCRIBING PAIN MEDICATIONS. LAST TOXICOLOGY IS REVIEWED AND WITHIN NORMAL LIMITS. PATIENT IS IN THE PROCESS OF MOVING TO [place]. -. FALL RISK SCREENING: SCREENING :TWO OR MORE FALLS WITHOUT INJURY IN THE PAST YEAR TAKING DOG OUT AT NIGHT NO INJURY PAIN SCREENING: PATIENT HAS A COMPLAINT OF ACUTE OR CHRONIC PAIN :YES LOCATION OF PAIN:ABDOMEN, LOW BACK WHAT DOES YOUR PAIN FEEL LIKE:CONTINOUS, INTERMITTENT, ACHING, SHARP INTERMITTENT IS SHARP , ALSO HAS CONSTANT DULL PAIN DURATION:STEADY PT VERBALIZES MANY DISCRIPTIVES FOR HER PAIN NURSING NOTE: -. CURRENT MEDICATIONS TAKING MULTIPLE VITAMIN 2 TABLETS TABLET ORALLY DAILY TAKING BENADRYL 25 MG CAPSULE 2 CAPSULES ORALLY BEFORE BEDTIME TAKING AZELASTINE HCL 0.05 % SOLUTION 1 DROP INTO AFFECTED EYE OPHTHALMIC BID NEEDED TAKING PHENAZOPYRIDINE HCL 200 MG TABLET 1 TABLET AFTER MEALS ORALLY THREE TIMES DAILY NEEDED, NOTES: AZO TAKING POTASSIUM CITRATE ER 15 MEQ (1620 MG) TABLET EXTENDED RELEASE 1 TABLET WITH MEALS ORALLY DAILY TAKING DOXEPIN HCL 100 MG CAPSULE 1 CAPSULE AT BEDTIME ORALLY DAILY TAKING PROBIOTIC CAPSULE ORALLY DAILY TAKING METHENAMINE-SODIUM SALICYLATE 1 GRAM ORALLY BID TAKING AMBIEN CR 12.5 MG TABLET EXTENDED RELEASE 1 TABLET AT BEDTIME NEEDED ORALLY ONCE A DAY TAKING ZYRTEC ALLERGY 10 MG TABLET 1 TABLET ORALLY ONCE A DAY NEEDED TAKING COLACE 100 MG CAPSULE 1 CAPSULE NEEDED ORALLY TID TAKING OXYBUTYNIN CHLORIDE ER 10 MG TABLET EXTENDED RELEASE 24 HOUR 1 TABLET ORALLY ONCE A DAY NEEDED TAKING PROGESTERONE MICRONIZED 200 MG CAPSULE 1 CAPSULE AT BEDTIME ORALLY ONCE A DAY TAKING PROZAC 40 MG CAPSULE 1 CAPSULE ORALLY ONCE A DAY TAKING GABAPENTIN 300 MG CAPSULE 1 CAP ORALLY 1 IN A.M AND 2 AT BEDTIME TAKING RIZATRIPTAN BENZOATE 10 MG TABLET 1 TAB ORALLY AT ONSET OF MIGRAINE FOR TOTAL OF 9 MIGRAINE EVENTS PER MONTH TAKING PERCOCET 10-325 MG TABLET 1 TABLET ORALLY Q8H TID MDD3 TAKING ESTRADIOL 0.0375 MG/24HR PATCH TWICE WEEKLY 1 PATCH TO SKIN TRANSDERMAL TWO TIMES A WEEK, NOTES: ONCE A WEEK TAKING IMODIUM A-D 2 MG TABLET 1 TABLET NEEDED ORALLY NEEDED NOT-TAKING VITAMIN B-12 1000 MCG TABLET 1 TABLET ORALLY ONCE A DAY NOT-TAKING VITAMIN D (ERGOCALCIFEROL) 99696 UNIT CAPSULE 1 CAPSULE ORALLY TWICE A WEEK NOT-TAKING IRON 325 (65 FE) MG TABLET 1 TABLET ORALLY DAILY NOT-TAKING ABILIFY 5 MG TABLET 1 TABLET ORALLY ONCE A DAY NOT-TAKING CYMBALTA 60 MG CAPSULE DELAYED RELEASE PARTICLES 1 CAPSULE ORALLY DAILY IN THE AM AND 40 MG IN THE PM NOT-TAKING CARISOPRODOL 350 MG TABLET 1 TABLET NEEDED ORALLY BEFORE BEDTIME NOT-TAKING ESTRADIOL 10 MG PELLET ONE APPLICATION INTRAVAGINALLY ONCE WEEKLY NOT-TAKING KEFLEX 500 MG CAPSULE 1 CAPSULE ORALLY THREE TIMES A DAY NOT-TAKING TYLENOL 325 MG TABLET 1 TABLET NEEDED ORALLY EVERY 4 HRS NOT-TAKING PREMARIN 0.3 MG TABLET 1 TABLET ORALLY ONCE A DAY 0.5 GRAMS DAILY MEDICATION LIST REVIEWED AND RECONCILED WITH THE PATIENT PAST MEDICAL HISTORY KIDNEY STONES HYPERTENSION 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 RECURRENT UTI DEPRESSION PTSD ANXIETY HEREDITARY HEMOCHROMOTOSIS ALLERGIES BACTRIM: RASH - ALLERGY VICODIN: DYSPNEA - ALLERGY DILAUDID: NAUSEA/VOMITING - SIDE EFFECTS LEVAQUIN: NAUSEA/VOMITING - SIDE EFFECTS IV DYE: HIVES - ALLERGY GREEN DYE IN GEL CAPS: HIVES - ALLERGY EXCEDRIN MIGRAINE: HIVES - ALLERGY MACROBID: HIVES - ALLERGY SURGICAL HISTORY LITHOTRIPSY W/STENT R SIDE 12/1996 10/1998 LITHOTRIPSY W/STENT R SIDE 11/1998 GALL BLADDER REMOVED 12/1998 LITHOTRIPSY W/STENT R SIDE 09/2003 LITHOTRIPSY W/STENT R SIDE 03/2006 LITHOTRIPSY W/STENT LEFT SIDE 05/2006 LITHOTRIPSY W/STENT L SIDE 05/2009 GASTRIC BYPASS 03/2012 LEFT - KIDNEY AUTOTRANSPLANT 11/09/2012 CYSTOSCOPY, RETROGRADE PYELOGRAM & RIGHT URETERAL STENT PLACEMENT 12/23/2012 CYSTOSCOPY, RIGHT URETEROSCOPY, BASKET EXTRACTION OF STONES, RIGHT DOUBLE J STENT EXCHANGE 02/02/2013 RIGHT KIDNEY AUTOTRANSPLANT 2014 FAMILY HISTORY FATHER: ALIVE, DIAGNOSED WITH HYPERTENSION, OTHER SPECIFIED CONDITIONS INFLUENCING HEALTH STATUS MOTHER: 61 YRS, HYPERTENSION, OTHER MALIGNANT NEOPLASM OF UNSPECIFIED SITE 1 SON(S) - HEALTHY. FATHER-HYPERLIPIDEMIA\\NMOTHER FROM [place]. SOCIAL HISTORY GENERAL: TOBACCO USE ARE YOU A: NONSMOKER. LATEX QUESTIONNAIRE LATEX ALLERGY : HAVE YOU EVER DEVELOPED ANY TYPE OF REACTION AFTER HANDLING LATEX PRODUCTS SUCH RUBBER GLOVES, CONDOMS, DIAPHRAGMS, BALLOONS, SOCKS, OR UNDERWEAR?NO LATEX ALLERGY : HAVE YOU EVER DEVELOPED ANY TYPE OF REACTION DURING OR AFTER DENTAL APPOINTMENT, VAGINAL/RECTAL EXAMINATION, SURGICAL PROCEDURE, OR ANY OTHER EXPOSURE?NO DATE ASKED : 12/25/2019 LATEX RISK : HAVE YOU EVER HAD ANY DIFFICULTY BREATHING OR HIVES AFTER EATING OR HANDLING ANY FRUITS, OR VEGETABLES; SUCH KIWI, BANANAS, STONE FRUITS, OR CHESTNUTSNO LATEX RISK : DO YOU HAVE A PREVIOUS PERSONAL HISTORY OF MORE THAN NINE SURGERIES, SPINA BIFIDA, OR REPEATED CATHERIZATIONS? NO LATEX RISK : ARE YOU FREQUENTLY EXPOSED TO LATEX PRODUCTS IN YOUR OCCUPATION?NO ALCOHOL SCREENING DID YOU HAVE A DRINK CONTAINING ALCOHOL IN THE PAST YEAR?NO POINTS0 INTERPRETATIONNEGATIVE RECREATIONAL DRUG USE DRUG USE?NO CAFFEINE CAFFEINE USE?YES HOW OFTEN AND HOW MUCH? 1 CUP COFFEE/DAY SEXUAL HX HAD SEX IN THE LAST 12 MONTHS (VAGINAL, ORAL, OR ANAL)?YES WITHMEN ONLY LMP:10/23/2017 HIV / HEP-C SCREENING HIV TEST OFFERED TO PATIENT:NO PREVIOUSLY DONE HEP-C TEST OFFERED TO PATIENT:NO LATTER DAY [id number] [employer] L[employer] LANGUAGES SPOKEN:PERSIAN EDUCATION LEVEL OF EDUCATION:FINISHED COLLEGE LEARNING BARRIERS / SPECIAL NEEDS BARRIERS TO LEARNING?NO HEARING IMPAIRED?NO VISION IMPAIRED?YES COGNITIVELY IMPAIRED?NO :CORRECTIVE LENSES READINESS TO LEARN?YES LEARNING PREFERENCES?NO LEARNING CAPABILITIES PRESENT?YES EMOTIONAL BARRIERS?NO SPECIAL DEVICES?YES :CANE GLASS WASHER AND CARRIER NEEDED?NO DOMESTIC VIOLENCE DO YOU FEEL SAFE IN YOUR ENVIRONMENT?YES OCCUPATION: TEACHER. DIET: REGULAR. EXERCISE: NONE. MARITAL STATUS: SINGLE. OTHERS AT HOME: BOYFRIEND. TODAY'S VISITNOTES 12/25/2019 PATIENT DESCRIBES PAIN :HAVE IT ALL THE TIME, SHARP, STABBING FROM 0-10, WHAT LEVEL IS YOUR PAIN TODAY?8 PAIN CLINIC PFS, CLERGY, PUBLIC HEALTH REFERRALS PFS REFERRAL NEEDED?NO CLERGY REFERRAL NEEDED?NO PUBLIC HEALTH REFERRAL NEEDED?NO WAS THE PROVIDER NOTIFIED OF ANY PERTINENT INFO? N/A HAS THE PATIENT BEEN EDUCATED REGARDING HIS/HER PLAN OF CARE?YES HAS THE PATIENT BEEN EDUCATED REGARDING PAIN, THE RISK FOR PAIN, THE IMPORTANCE OF EFFECTIVE PAIN MANAGEMENT, AND THE PAIN ASSESSMENT PROCESS?YES ADVANCE DIRECTIVE ADVANCE DIRECTIVE DISCUSSED WITH PATIENT:YES STATES SHE HAS HCP-FATHER JEANNA GRAHAM--[phone] HOSPITALIZATION/MAJOR DIAGNOSTIC PROCEDURE 1998 GALL BLADDER REMOVED 1998 SEPTIC INFECTION 2006 PYELONEPHRITIS, UROSEPSIS, OBSTRUCTIVE NEPHROLITHIASIS 12/22/2012 REVIEW OF SYSTEMS CONSTITUTIONAL: ANY RECENT FEVER NO . CHILLS NO . WEIGHT CHANGE OF UNKNOWN REASONS NO . GASTROENTEROLOGY: NEW UNEXPLAINABLE CHANGES IN BOWEL CONTROL NO . CONSTIPATION NO . GENITOURINARY: ANY NEW CHANGE IN BLADDER CONTROL? NO . NEUROLOGY: NEW ONSET DIZZINESS OR NEUROLOGICAL CHANGES NOT MENTIONED NO . NEW NUMBNESS OR PAIN PATTERNS NOT MENTIONED AND PERTINENT TO TODAY'S VISIT NO . CARDIOLOGY: NEW CHEST PRESSURE NO . NEW CHEST PAIN NO . RESPIRATORY: UNEXPLAINABLE COUGH NO . NEW SHORTNESS OF BREATH NO . VITAL SIGNS WT 220.0 LBS, HT 66", BMI 35.51 INDEX, BP 146/85 MM HG, HR 113 /MIN, RR 18 /MIN, TEMP 97.9 F, OXYGEN SAT % 98%, SAFE IN ENV? (Y/N) YES, NA INITIALS AW 1100, REVIEWED BY: KG. EXAMINATION GENERAL EXAMINATION: GENERALAWAKE,ALERT ,PLEASANT . PSYCHAFFECT NORMAL . LUNGS:LUNG FAGAN ARE CLEAR TO AUSCULTATION BILATERALLY. GOOD MOVEMENT OF AIR . HEART:S1, S2 IN A REGULAR RATE AND RHYTHM. NO SIGNIFICANT MURMURS, RUBS OR GALLOPS NOTED . ASSESSMENTS GENERALIZED ABDOMINAL PAIN - R10.84 (PRIMARY) CHRONIC PRESCRIPTION OPIATE USE - Z79.899 TREATMENT GENERALIZED ABDOMINAL PAIN CONTINUE RIZATRIPTAN BENZOATE TABLET, 10 MG, 1 TAB, ORALLY, AT ONSET OF MIGRAINE FOR TOTAL OF 9 MIGRAINE EVENTS PER MONTH, 30 DAYS, 9, REFILLS 2 REFILL PERCOCET TABLET, 10-325 MG, 1 TABLET, ORALLY, Q8H TID MDD3, 30 DAY(S), 90, REFILLS 0 CONTINUE GABAPENTIN CAPSULE, 300 MG, 1 CAP, ORALLY, 1 IN A.M AND 2 AT BEDTIME, 30 DAYS, 90, REFILLS 2 NOTES: ISTOP REGISTRY REVIEWED AND DEMONSTRATES COMPLLIANCE. BRINGS IN MEDICATIONS WHICH IS APPROPRIATE FOR WHAT WAS DISPENSED. RECENT URINE TOXICOLOGY REVIEWED. NO UNAUTHORIZED MEDICATIONS. NO ILLICIT SUBSTANCES AND PRESCRIBED MEDICATIONS WERE PRESENT. , RISKS OF NARCOTIC/OPIOD MEDICATIONS INCLUDES BUT IS NOT LIMITED TO RISK OF DEPENDANCE/DEVELOPMENT OF ADDICTION, MOOD DISTURBANCE AND DEPRESSION, OSTEOPOROSIS, HORMONAL AND LABIDAL CHANGES, RESPIRATORY DEPRESSION AND . PATIENT IS ADVISED NOT TO DRIVE OR DRINK ALCOHOL WHILE ON THESE MEDICATIONS. PROCEDURE CODES [id number] ESTABILISHED PATIENT [facility] FACILITY CHARGE DISPOSITION & COMMUNICATION FOLLOW UP 10 WKS IN CLINIC MED MGMNT/URINE TOX (REASON: MEDICATION MANAGEMENT/PILL COUNT ID/URINE TOXICOLOGY) ELECTRONICALLY SIGNED BY NICOLÁS BORDEN ON 08/25/2020 AT 03:48 PM EST DISCLAIMER : THIS IS A VISIT SUMMARY EXTRACTED FROM THE [employer] CHART. IT IS NOT A COPY OF THE [employer] PROGRESS NOTE. JEANETTE
== END ==
LOC: M PAIN 11:00
PROVIDERS: ATTEND Nurse Practitioner Family
DX: R10.84 Generalized abdominal pain (principal); G89.29 Other chronic pain; Z86.59 Personal history of other mental and behavioral disorders; Z98.84 Bariatric surgery status; Z88.1 Allergy status to other antibiotic agents; Z88.5 Allergy status to narcotic agent; Z88.8 Allergy status to other drugs, medicaments and biological substances; Z91.041 Radiographic dye allergy status; Z79.891 Long term (current) use of opiate analgesic; Z79.899 Other long term (current) drug therapy